=== PATIENT | female | born 1950 | race Caucasian/White ===

== ENCOUNTER → 2017-09-22 08:25 | Outpatient (CLI) | payer MEDICARE, SELFPAY ==
--- NOTE | 2017-09-22 08:27 | MM_ITS ---
MM Dig screening mamm BI w/CAD CAD Screening COMPARISON: Digital mammograms 08/15/2016 and follow-up additional views of each breast 09/06/2016 INDICATION: There is a history of breast cancer in patient's sister diagnosed after menopause.. TECHNIQUE: Standard CC and MLO images were obtained. R2 CAD reviewed. FINDINGS: Scattered fibroglandular densities are seen throughout both breasts. There are stable benign-appearing nodular densities in each breast. There are mole markers on each breast and there is faint arterial calcification in each breast. There is no suspicious lesion and there are no suspicious microcalcifications. IMPRESSION: Fibrofatty parenchyma no suspicious lesion seen BI-RADS Category: 2 Benign Finding(s) RECOMMENDED FOLLOW-UP: 1YR - 1 YEAR FOLLOW-UP (A letter has been sent to the patient regarding results of the study.)
== END ==
PROVIDERS: PCP Family Medicine Geriatric Medicine; Visit Provider Obstetrics & Gynecology
DX: Z12.31 Encounter for screening mammogram for malignant neoplasm of breast (principal)
CPT/HCPCS: 77067

== ENCOUNTER → 2018-09-18 08:49 | Outpatient (CLI) | payer MEDICARE, SELFPAY ==
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
== END ==
PROVIDERS: PCP Emergency Medicine; Visit Provider Emergency Medicine
DX: Z13.820 Encounter for screening for osteoporosis (principal); Z78.0 Asymptomatic menopausal state
CPT/HCPCS: 77080

== ENCOUNTER → 2018-09-25 08:20 | Outpatient (CLI) | payer MEDICARE, SELFPAY ==
--- NOTE | 2018-09-25 08:22 | MM_ITS ---
MM Dig screening mamm BI w/CAD CAD Screening COMPARISON: Digital mammograms with CAD 08/15/2016 and 09/22/2017 INDICATION: There is a history of breast cancer patient's sister diagnosed after menopause. There has been previous biopsy left breast for benign disease. TECHNIQUE: Standard CC and MLO images were obtained. R2 CAD reviewed. FINDINGS: Scattered fibroglandular densities are seen throughout both breasts. There are stable benign-appearing nodular densities in each breast. There are few benign-appearing microcalcifications in each breast. There are mole markers on each breast. There is no suspicious lesion and there are no suspicious microcalcifications. IMPRESSION: Fibrofatty parenchyma with no suspicious lesion seen BI-RADS Category: 2 Benign Finding(s) RECOMMENDED FOLLOW-UP: 1YR - 1 YEAR FOLLOW-UP (A letter has been sent to the patient regarding results of the study.)
== END ==
PROVIDERS: PCP Emergency Medicine; Visit Provider Obstetrics & Gynecology
DX: Z12.31 Encounter for screening mammogram for malignant neoplasm of breast (principal)
CPT/HCPCS: 77067

== ENCOUNTER → 2019-11-30 09:21 | Outpatient (CLI) | payer MEDICARE, SELFPAY ==
--- NOTE | 2019-11-30 09:21 | MM_ITS ---
PROCEDURE: MM DIG SCREENING MAMM BI W/CAD Digital Breast Tomosynthesis Included CLINICAL INDICATION: Routine Screening Mammogram There is a history of breast cancer patient's sister diagnosed after menopause. There has been a previous biopsy left breast for benign disease. COMPARISON: [facility] DIG MAMM- [facility] ADD VIEWS W/CAD from 09/06/2016 [facility] MM Dig screening mamm BI w/CAD from 09/22/2017 [facility] MM Dig screening mamm BI w/CAD from 09/25/2018 TECHNIQUE: Standard CC and MLO images and 3D Tomosynthesis was obtained. R2 CAD reviewed. FINDINGS: Scattered fibroglandular densities are seen throughout both breasts. There are stable small nodular benign-appearing densities in each breast. There are 2 mole markers right breast and a single mole marker left breast. There are couple of benign-appearing calcifications in each breast and there is a biopsy clip left breast. There is a probable intramammary node near the axillary tail right breast. There is faint arterial calcification in each breast. There is no new or suspicious lesion in either breast and no suspicious microcalcifications. IMPRESSION: Fibrofatty parenchyma with no suspicious lesions seen BI-RAD Category: 2 Benign Finding(s) FOLLOW-UP: 1YR 1 Year Follow-up (A letter has been sent to the patient regarding results of the study.) Dictated by: Dr. Eliud Leon MD 12/03/2019 07:[address] Eliud Leon MD in [place] 12/03/2019 07:54
== END ==
PROVIDERS: PCP Emergency Medicine; Visit Provider Obstetrics & Gynecology
DX: Z12.31 Encounter for screening mammogram for malignant neoplasm of breast (principal)
CPT/HCPCS: 77063; 77067

== ENCOUNTER 2020-07-03 10:00 | Outpatient (RCR) | payer MEDICARE, SELFPAY ==
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
--- NOTE | 2020-06-06 09:41 | HMH.RHREAS ---
Rehab Reassessment Rehab OP Re-assessment Start: 06/06/20 09:31 Freq: Status: Active Protocol: Document 06/06/20 09:31 FRANCIS (Rec: 06/06/20 09:40 FRANCIS [id number]) Electronically Signed By Cinthya Victor OT 06/06/20 09:31 Rehab Re-assessment Subjective Subjective My finger is getting better. I can cook pickled meat my skillet a little better. Objective Objective Notes Patient has participated well in skilled OP OT services with manual stretching, thera exer and modalities to improve AROM/strengthening and decrease pain levels for L index finger of MP, PIP and DIP. Assessment Progress Assessment Progressing as Expected Patient goals met 1. AROM L index MCP: 90 degrees 2. AROM L index PIP: 70 degrees 3. Pain level 1/10 at worst Goals Not Met 1. AROM of DIP: 50. 2. L asp net programmer strength 30# Revised Goals 1. AROM L index PIP: 75 degrees 2. AROM L index DIP: 75 degrees 3. AROM L asp net programmer strength 40# 4. 0/10 pain at worst Plan Plan Continue POC Frequency of Therapy 2 Duration of therapy 4 Time and Billing Re-Eval Time 15 Re-Eval Billing Units 1 PHYSICIAN CERTIFICATION: I certify the specified therapy services for Chasity Hyde are required, authorized, and reviewed every 30 days.
--- NOTE | 2020-07-03 10:35 | HMH.RHREAS ---
Rehab Reassessment Rehab OP Re-assessment Start: 06/06/20 09:31 Freq: Status: Active Protocol: Document 07/03/20 10:10 FRANCIS (Rec: 07/03/20 10:17 FRANCIS [id number]) Electronically Signed By Cinthya Victor OT 07/03/20 10:10 Rehab Re-assessment Subjective Subjective I just got an email about my follow up appointment but not a date. My finger is feeling better. Objective Objective Notes Patient has participated well in skilled OP OT services with manual stretching, thera exer and modalities to improve AROM/strengthening and decrease pain levels for L index finger of MP, PIP and DIP. Assessment Progress Assessment Progressing as Expected Assessment Notes Patient has made progress with improving L index AROM of PIP to 80 degrees and DIP: 60 degrees from re-assessment. Patient verbalize 0/10 pain with L index finger during AROM. Awaiting for ortho appointment for possible surgery to remove scar tissue. Patient goals met 1. 0/10 pain to L index during still and AROM. 2. AROM of L index PIP: 80 degrees Goals Not Met L AROM of DIP: 60 degrees and L chemical plant worker: strength: 30# Revised Goals 1. 0/10 pain to L index finger . Continue for consistency. 2. AROM of L index PIP: 85 degrees 3. AROM of L index DIP: 70 degrees 4. L chemical plant worker strength 40# Plan Plan Continue POC Frequency of Therapy 1x/wk Duration of therapy 4 weeks PHYSICIAN CERTIFICATION: I certify the specified therapy services for Chasity Hyde are required, authorized, and reviewed every 30 days.
== END 2020-07-03 10:05 | disposition home or self-care (01) ==
LOC: OT 10:00
PROVIDERS: PCP Emergency Medicine; Visit Provider Family Medicine
DX: M25.642 Stiffness of left hand, not elsewhere classified (principal)
CPT/HCPCS: 97018; 97035; 97110; 97140; 97164; 97165

== ENCOUNTER → 2020-12-28 09:21 | Outpatient (CLI) | payer MEDICARE, SELFPAY ==
--- NOTE | 2020-12-28 09:24 | MM_ITS ---
PROCEDURE INFORMATION: Exam: MG Screening 3D Mammography Exam date and time: 12/28/2020 9:24 AM Age: 70 years old Clinical indication: Encounter for screening mammogram for malignant neoplasm of breast TECHNIQUE: Imaging protocol: Screening tomosynthesis and 2D mammography including computer-aided detection (CAD) when performed. COMPARISON: 1. MG MM DIG SCREENING MAMM BI W/CAD 11/30/2019 9:30 AM 2. MG [facility] MM Dig screening mamm BI w/CAD 09/25/2018 8:39 AM FINDINGS: MAMMOGRAPHY: Breast composition: The breast tissue is composed of scattered areas of fibroglandular density. Mass: None. Architectural distortion: None. Calcifications: No suspicious calcifications. Asymmetric density: None. Skin thickening: None. Axillary adenopathy: None. IMPRESSION: No mammographic evidence of malignancy. Annual screening is recommended unless otherwise clinically indicated. ASSESSMENT: BI-RADS Category 1: Negative
== END ==
PROVIDERS: PCP Family Medicine; Visit Provider Family Medicine
DX: Z12.31 Encounter for screening mammogram for malignant neoplasm of breast (principal)
CPT/HCPCS: 77063; 77067

== ENCOUNTER → 2022-03-08 10:02 | Outpatient (CLI) | payer MEDICARE, SELFPAY ==
--- NOTE | 2022-03-08 10:07 | MM_ITS ---
PROCEDURE INFORMATION: Exam: MG Bilateral Screening 3D Mammography Exam date and time: 03/08/2022 10:00 AM Age: 71 years old Clinical indication: Screening mammogram TECHNIQUE: Imaging protocol: Bilateral Screening tomosynthesis and 2D mammography including computer-aided detection (CAD) when performed. COMPARISON: 1. MG MM DIG SCREENING MAMM BI W/CAD 12/28/2020 9:21 AM 2. MG MM DIG SCREENING MAMM BI W/CAD 11/30/2019 9:30 AM 3. MG [facility] MM Dig screening mamm BI w/CAD 09/25/2018 8:39 AM 4. MG [facility] MM Dig screening mamm BI w/CAD 09/22/2017 8:39 AM FINDINGS: MAMMOGRAPHY: Breast composition: There are scattered areas of fibroglandular density. Mass: Stable benign-appearing subcentimeter nodules are present in the left breast. No new or morphologically suspicious nodule has developed to suggest malignancy. Architectural distortion: No new or suspicious architectural distortion. Calcifications: Stable benign-appearing calcifications are present. No new or suspicious cluster of microcalcifications have developed. Asymmetric density: No new or suspicious asymmetric density is present Skin thickening: None. Axillary adenopathy: None. IMPRESSION: No mammographic evidence of malignancy. Recommend annual screening mammography unless otherwise clinically indicated. ASSESSMENT: BI-RADS category 2: Benign
== END ==
PROVIDERS: PCP Family Medicine; Visit Provider Family Medicine
DX: Z12.31 Encounter for screening mammogram for malignant neoplasm of breast (principal)
CPT/HCPCS: 77063; 77067

== ENCOUNTER → 2023-03-10 10:20 | Outpatient (CLI) | payer MEDICARE, SELFPAY ==
--- NOTE | 2023-03-10 10:23 | MM_ITS ---
PROCEDURE INFORMATION: Exam: MG Bilateral Screening 3D Mammography Exam date and time: 03/10/2023 10:15 AM Age: 72 years old Clinical indication: Screening examination . Family history of breast carcinoma. TECHNIQUE: Imaging protocol: Bilateral Screening tomosynthesis and 2D mammography including computer-aided detection (CAD) when performed. COMPARISON: 1. MG MM DIG SCREENING MAMM BI W/CAD 03/08/2022 10:00 AM 2. MG MM DIG SCREENING MAMM BI W/CAD 12/28/2020 9:21 AM 3. MG MM DIG SCREENING MAMM BI W/CAD 11/30/2019 9:30 AM FINDINGS: MAMMOGRAPHY: Breast composition: There are scattered areas of fibroglandular density. Mass: No suspicious masses. Architectural distortion: No suspicious distortion. Calcifications: No suspicious calcifications. Asymmetric density: None. Skin thickening: None. Axillary adenopathy: None. IMPRESSION: 1. No mammographic evidence of malignancy. Annual screening is recommended unless otherwise clinically indicated. 2. Given the reported risk factors for this patient, a breast cancer risk assessment may prove useful for further evaluation. ASSESSMENT: BI-RADS Category 1: Negative
== END ==
PROVIDERS: PCP Family Medicine; Visit Provider Family Medicine
DX: Z12.31 Encounter for screening mammogram for malignant neoplasm of breast (principal)
CPT/HCPCS: 77063; 77067

== ENCOUNTER → 2023-07-04 09:37 | Outpatient (CLI) | payer MEDICARE, SELFPAY | PROVIDERS: PCP Family Medicine; Visit Provider Family Medicine | DX: G47.33 Obstructive sleep apnea (adult) (pediatric) (principal); G47.36 Sleep related hypoventilation in conditions classified elsewhere; R06.83 Snoring | CPT/HCPCS: G0399 ==

== ENCOUNTER 2024-03-17 10:22 | Outpatient (CLI) | payer MEDICARE, SELFPAY ==
--- NOTE | 2024-03-17 | MM_ITS ---
PROCEDURE INFORMATION: Exam: MG Bilateral Screening 3D Mammography Exam date and time: 03/17/2024 10:19 AM Age: 73 years old Clinical indication: Screening examination TECHNIQUE: Imaging protocol: Bilateral Screening tomosynthesis and 2D mammography including computer-aided detection (CAD) when performed. COMPARISON: 1. MG MM DIG SCREENING MAMM BI W/CAD 03/10/2023 10:15 AM 2. MG MM DIG SCREENING MAMM BI W/CAD 03/08/2022 10:00 AM FINDINGS: MAMMOGRAPHY: Breast composition: There are scattered areas of fibroglandular density. Mass: No suspicious masses. Architectural distortion: None. Calcifications: No suspicious calcifications. Asymmetric density: 1.2 cm focal asymmetry upper inner left breast posterior depth. Skin thickening: None. Axillary adenopathy: None. IMPRESSION: Questioned left breast focal asymmetry.The patient will be recalled for spot compression views of the left breast in the CC and MLO projections, a full 90 degree lateral view, and possible left breast ultrasound for further evaluation. ASSESSMENT: BI-RADS Category 0: Incomplete- Need Additional Imaging Evaluation.
== END 2024-03-17 23:59 | disposition home or self-care (01) ==
LOC: RAD 10:22
PROVIDERS: PCP Family Medicine; Visit Provider Family Medicine
DX: Z12.31 Encounter for screening mammogram for malignant neoplasm of breast (principal)
CPT/HCPCS: 77063; 77067

== ENCOUNTER 2024-04-16 10:22 | Outpatient (CLI) | payer MEDICARE, SELFPAY ==
--- NOTE | 2024-04-16 10:28 | MM_ITS ---
PROCEDURE INFORMATION: Exam: MG Left Diagnostic Breast Tomosynthesis Exam date and time: 04/16/2024 10:18 AM Age: 73 years old Clinical indication: Callback from screening exam dated 03/17/2024 for a left breast focal asymmetry TECHNIQUE: Imaging protocol: Left Diagnostic tomosynthesis and 2D mammography including computer-aided detection (CAD) when performed. Unilateral or bilateral exam. COMPARISON: 1. MG MM DIG SCREENING MAMM BI W/CAD 03/17/2024 10:19 AM 2. MG MM DIG SCREENING MAMM BI W/CAD 03/10/2023 10:15 AM FINDINGS: MAMMOGRAPHY: Breast composition: There are scattered areas of fibroglandular density (based on the most recent screening mammogram report.) Breast mammogram findings: Additional views of the left breast demonstrate a indistinct questionable glandular asymmetry in the far posterior tissues of the left breast, approximate 11-12 o'clock axis, best appreciated on the craniocaudal spot compression view measuring 1.2 cm. There are no suspicious calcifications or a discrete mass. IMPRESSION: Focal asymmetry in the left breast approximate 11-12 o'clock axis, in the far posterior tissues. Additional ultrasound evaluation of this region is recommended. ASSESSMENT: BI-RADS Category 0: Incomplete- Need Additional Imaging Evaluation.
== END 2024-04-16 23:59 | disposition home or self-care (01) ==
LOC: RAD 10:22
PROVIDERS: PCP Family Medicine; Visit Provider Family Medicine
DX: R92.8 Other abnormal and inconclusive findings on diagnostic imaging of breast (principal)
CPT/HCPCS: 77061; 77065; G0279

== ENCOUNTER 2024-04-28 10:20 | Outpatient (CLI) | payer MEDICARE, SELFPAY ==
--- NOTE | 2024-04-28 10:23 | US_ITS ---
PROCEDURE INFORMATION: Exam: US Left Breast, Complete Exam date and time: 04/28/2024 10:38 AM Age: 73 years old Clinical indication: Callback from screening for left breast asymmetry. TECHNIQUE: Imaging protocol: Complete ultrasound of all four quadrants of the left breast and the retroareolar regions, including ultrasound of the axilla when performed. COMPARISON: MG MM DIG MAMM DX UNILAT LT CAD 04/16/2024 10:18 AM FINDINGS: ULTRASOUND: Breast ultrasound findings: Left breast ultrasound: Benign simple cyst at 10 o'clock 3 cm from nipple measuring 0.5 cm corresponding to mammographic finding in question. Additional benign simple cyst measuring 0.9 cm at 10 o'clock, 9 cm from the nipple. Cluster of benign microcysts at 3 o'clock 3 cm from nipple measuring 0.7 cm. No solid or suspicious masses. IMPRESSION: Benign simple cysts in the left breast.There are no findings suspicious for malignancy. Annual mammographic screening is recommended unless otherwise clinically indicated. ASSESSMENT: BI-RADS Category 2: Benign.
== END 2024-04-28 23:59 | disposition home or self-care (01) ==
LOC: RAD 10:20
PROVIDERS: PCP Family Medicine; Visit Provider Family Medicine
DX: R92.8 Other abnormal and inconclusive findings on diagnostic imaging of breast (principal)
CPT/HCPCS: 76641

== ENCOUNTER 2025-01-19 09:21 | Outpatient (CLI) | payer MEDICARE, SELFPAY ==
--- OUTSIDE RECORDS SUMMARY | 2024-11-03 05:30 | XMS_ITS ---
Author Organization [facility] Address [address] [facility] [address] [place], [place] [id number] Care Team Providers Care Associate Quality Engineer Name Role Phone Reymundo Donato Primary Care Provider [phone] Allergies No Known Allergies Results Component Value [...] Interpretation:Normal Performing Lab: Notes/Report: Test performed by [place] , [address], [place] [address] Jose Walls MD, Warp Dyeing Vat Tender CLIA: [id number] Sodium 140 135-145 mmol/L Potassium 4.5 3.5-5.3 [...] Problem Status W/U Status Risk Notes Problem BMI 31.0-31.9,ad ult (Z68.31) Active confirmed Vital Signs Blood pressure systolic 138 mm Hg 11/04/19 25 Blood pressure diastolic 78 mm Hg 025 Heart Rate 85 /min 11/03/2024 Height 64 in 11/03/2024 Weight 184.4 lbs 11/03/2024 BMI 31.65 kg/m2 11/03/2024 Encounters Encounter Location Date Provider Diagnosis [facility] [address] [facility] [address] [place] [address], [place] [phone] 11/03/2024 Reymundo Donato Type 2 diabetes savita itus without complication, without long-term current use of insulin E11.9 ; Essential hypertension I10 ; Depression with anxiety F41.8 ; Gastroesophageal reflux disease, unspecified whether esophagitis present K21.9 ; shelter use of drug Z79.899 and BMI 31.0-31.9,adult [...] whether esophagitis present (ICD-10 - K21.9) 11/03/2024 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 :1950 A ge:74 Y S ex:Female Date:11/03/2024 Address:[facility] [id number] Subjective: * Chief Complaints: * 1 . [...] use of drug - Z79.899 ?6. B NM 31.0-31.9,adult - Z68.31 Plan: * Treatment: Value [...] Justine [place] 11/03/2024 10:43:3 9 AM > Eloise Schmidt 11/04/2024 08:43:42 AM [...] AM > please notify of satisfactory labs. KingJustine 11/04/2024 9:32:41 AM > LM for pt to return call AlfonsoYolaJustine 11/04/2024 10:47:08 AM > Pt informed 3.?Depression with anxiety? Refill buPROPion HCl ER (XL) Tablet Extended Release 24 Hour, 300 MG, 1 tablet in the morning, Orally, Once a day, 90 days, 90, Refills 1.??4.?Gastroesophageal reflux disease, unspecified whether esophagitis present? Refill Omeprazole Capsule Delayed Release, 20 MG, TAKE 1 CAPSULE BY MOUTH EVERY DAY, 90 days, 90 Capsule, Refills 1.??5.?shelter use of drug?LAB: CBC Venipuncture (in house) [...] p latlet 295 100 - 400 * King Justine 11/03/2024 10:42:1 1 AM > Eloise Schmidt [...] G 2211 Complex e/[place], [address] GLUCOSE TEST, 99929 GLYCATED HEMOGLOBIN TEST, Modifiers: QW , 12120 CBC WITH AUTO DIFF, 3044F HG A1C LEVEL LT 7.0%, G8752 MOST RECENT SYSTOLIC BP < 140MM HG, G8754 MOST RECENT DIASTOLIC BP < 90MM HG * Follow Up: 6 Months * Images: Billing Information: * Visit Code: 70303 Office Visit, Est Pt., Level 4. * Procedure Codes: G2211 Complex e/[place]. [address] GLUCOSE TEST. 85576 GLYCATED HEMOGLOBIN TEST. Modifiers: QW 36034 CBC WITH AUTO DIFF. 3044F HG A1C LEVEL LT 7.0%. G8752 MOST RECENT SYSTOLIC BP < 140MM HG. G8754 MOST RECENT DIASTOLIC BP < 90MM HG. * Electronic signature of Erika Donato MD on 01/19/2025 at 09:28 AM EDT Sign off status: Pending * Provider: Obed Donato M.D. Date: 0 11/03/2024 Generated for Mary Jane adames/Char/Humbertoitting on: 0 01/19/2025 09:28 AM EDT History and Physical Notes * HPI (History [...]
--- OUTSIDE RECORDS SUMMARY | 2024-11-10 05:30 | XMS_ITS ---
Author Organization [facility] Address [address] [facility] [address] [facility] [address] [place] [id number] Care Team Providers Care Technical Producer Name Role Phone Reymundo Donato Primary Care [...] DAY; Duration: 90 days Active Vital Signs Blood pressure systolic 134 mm Hg 11/11/19 25 Blood pressure diastolic 76 mm Hg 025 Heart Rate 92 /min 11/10/2024 Height 64 in 11/10/2024 Weight 184 lbs 11/10/2024 BMI 31.58 kg/m2 11/10/2024 Encounters Encounter Location Date Provider Diagnosis [facility] [address] [place] [id number] 11/10/2024 Reymundo Donato Plan Of Treatment Next Appt Details Provider Name:Ryemundosusie Hair ry, 05/06/2025 09:30:00 AM, [address], [address], [place], [phone], Progress Notes * ERROL HYDEMICHAELOB:1950 ([age] yo F)Acc No.[id number]:11/10/2024 Progress notes Patient: YOKO GARCIA Provider: Obed Donato M.D. :1950 A ge:74 Y S ex:Female Date:11/10/2024 Address:[address] [place], [place] [phone] Subjective: * Chief Complaints: * 1 . [...] 11/10/2024 Generated for Mary Jane adames/Char/Humbertoitting on: 0 01/19/2025 09:28 AM EDT History and Physical Notes * HPI (History of Present Illness) Category Sub-Category Detail Notes Category Not es HPI Here for follow up on: diabetes. Pt is here for demontsration on how to use Ozempic once a week
--- OUTSIDE RECORDS SUMMARY | 2024-12-23 05:10 | XMS_ITS ---
[facility] Address [address] [place] [address] [address] [place], [place] [id number] Care Team Providers Care Auto [employer] Counter Person Name Role Phone Reymundo Donato Primary Care Provider REASON FOR VISIT RIAZ Goins Encounters Encounter Location Date Provider Diagnosis [facility] [address] [facility] [address] [facility] [address] [place], [place] [id number] 12/23/2024 Reymundo Donato Screening for osteoporosis Z13.820 Assessments Encounter Date Diagnosis (ICD Code) Assessment Notes Treatment Notes Treatment Clinical Notes Section Notes 12/23/2024 Screening for osteoporosis (ICD-10 - Z13.820) Plan Of Treatment Pending Test Test Name Order Date Bone density 12/23/2024 Next Appt Details Provider Name:Reymundo Hair ry, 05/06/2025 09:30:00 AM, [address] [facility] [address] [facility], [address], [place], [place], [id number], Progress Notes * EMILY HYDEOB:1950 ([age] yo F)Acc No.[id number]:12/23/2024 Patient: YOKO GARCIA :1950 A ge:74 Y S ex:Female Address:[address] [place] [id number] Subjective: * Chief Complaints: * C RIAZ stein * Medical History: * Surgical History: * Hospitalization/Major Diagno stic Procedure: * Medications: Objective: * Vitals: * Physical Examination: Assessment: * Assessment: 1. S creening for osteoporosis - Z13.820 (Primary) Plan: * Treatment: * Procedure Codes: * true * Date: Generated for Mary Jane adames/Char/Perez on: 0 01/19/2025 09:28 AM EDT
--- NOTE | 2025-01-19 09:24 | XR_ITS ---
FINAL REPORT CLINICAL HISTORY: SCREENING COMPARISON: None FINDINGS: Using L1-4, the bone mineral density of the spine is 1.286 g/cm2, corresponding to T-score of 2.2, within normal limits. Using the left hip, the bone mineral density of the femoral neck is 0.821 g/cm2, corresponding to a T-score of -0.3, within normal limits. Using the right hip, the bone mineral density of the femoral neck is 0.865 g/cm2, corresponding to a T-score of 0.1, within normal limits. FRAX not reported because all T-scores at or above-1.0. NOTE: T-score: Standard deviation compared with peak bone mass of young adult mean. *Following the recommendations of the International Society of Bone densitometry, classification of hip BMD is based on the lower of two T-scores; total hip or femoral neck. IMPRESSION: Normal bone mineral density of the lumbar spine and hips. Reviewed, Interpreted and Dictated by Adina Vizcarra MD Transcribed by Luba Howell Authenticated and [facility]
--- OUTSIDE RECORDS SUMMARY | 2025-01-19 09:28 | XMS_ITS | Patient Health Record ---
Author Organization [facility] Address [address] [facility] [address] [place] [id number] Care Team Providers Care Barrel Scraper Name Role Phone RavenSommer ovalleian Primary Care Provider [phone] Allergies No Known Allergies Results Component Value [...] Interpretation: Performing Lab: Notes/Report: Test performed by [facility] , [address], [place] [address] Jose Walls MD, Stitch Bonder Machine Operator Helper CLIA: [id number] Sodium 140 135-145 mmol/L Potassium 4.4 3.5-5.3 [...] Interpretation: Performing Lab: Notes/Report: Test performed by [facility] [address] , [address] , [place] [address] Jose Walls MD, Stitch Bonder Machine Operator Helper CLIA: [id number] Cholesterol 145 <200 mg/dL Triglycerides 129 <150 [...] Interpretation: Performing Lab: Notes/Report: Test performed by [facility] [address] [place] [address] , [address], [place] [address] Jose Walls MD, Stitch Bonder Machine Operator Helper CLIA: [id number] TSH reflex to FT4 1.74 0.43-5.25 mU/L P-Microalbumin/Creatinine, R andom Urine Sample Reviewed date:04/08/2024 09:08:06 AM Interpretation: Performing Lab: Notes/Report: Test performed by [facility] [address] [place] [address] , [address], [place] [address] Jose Walls MD, Stitch Bonder Machine Operator Helper CLIA: [id number] Albumin/Creatinine Ratio, Urine See Comment 0-30 ug/mg Unable to calculate Urine Albumin/Creatinine Ratio when urine creatinine or urine albumin fall outside established reportable range. Microalbumin, Urine, Random <0.3 Creatinine, Urine 24.7 Mammogram, spot compression, left breast Reviewed date:04/22/2024 08:45:53 AM Interpretation:needs additional imaging- US left breast Performing Lab: Notes/Report: needs additional imaging- US left breast Mammogram Reviewed date:03/22/2024 08:53:37 AM Interpretation:needs additional imaging Performing Lab: Notes/Report: needs additional imaging result needs additional imaging Ultrasound : Breast, left Reviewed date:05/03/2024 04:08:00 PM Interpretation:Benign Simple Cysts; Annual Screening Recommended Performing Lab: Notes/Report: Benign Simple Cysts; Annual Screening Recommended P-Basic Metabolic Panel (BMP ) Reviewed date:11/04/2024 10:48:04 AM Interpretation:Normal Performing Lab: Notes/Report: Test performed by [facility] [address] [place] [address] , [address], [place] [address] Jose Walls MD, Stitch Bonder Machine Operator Helper CLIA: [id number] Sodium 140 135-145 mmol/L Potassium 4.5 3.5-5.3 mmol/L Chloride 102 97-108 mmol/L CO2 25 22-32 mmol/L Glucose 105 65-99 mg/dL BUN 16 8-23 mg/dL Creatinine 0.98 0.50-1.00 mg/dL Calcium 10.0 8.6-10.4 mg/dL eGFR by Creatinine 61 >59 mL/min/1.73m2 Glycohemoglobin A1c (in hous e) Reviewed date:11/04/2024 10:48:04 AM Interpretation:6.6 Performing Lab: Notes/Report: 6.6 glycohemoglobin 6.6% 5 - 6.5 % CBC Venipuncture (in house) Reviewed date:11/04/2024 10:48:04 [...] - 38 platlet 295 100 - 400 Glucose (In-House) Reviewed date:11/04/2024 10:48:04 AM Interpretation:133 Performing Lab: Notes/Report: 133 blood glucose 133 74 - 106 mg/dL Reason For Referral No Information Medications Medication SIG (Take, Route, Frequency, Duration) Notes Start Date End Date Status CPAP Supplies - as directed as directed 11/03/2024 Active amLODIPine Besylate 5 MG TAKE 1 TABLET BY MOUTH DAILY; Duration: 90 days Active Omeprazole 20 MG TAKE 1 CAPSULE BY MOUTH EVERY DAY; Duration: 90 days Active Lisinopril 40 MG 1 tablet Orally [...] times a day; Duration: 30 day(s) Active Ozempic (0.25 or 0.5 MG/DOSE) 2 MG/3ML 0.5 mg Subcutaneous once weekly; Duration: 30 days 11/03/2024 Active Immunizations Vaccine Route Administration Date Status Comme nts COVID 19 Moderna Unknown 07/07/2020 Administered COVID 19 Moderna Unknown 08/04/2020 Administered COVID 19 Moderna Unknown 05/03/2021 Administered Fluzone High Dose (65yr and older) Unknown 09/14/2018 Administered Fluzone High Dose (65yr and older) IM Intramuscular 04/09/2019 Administered Fluzone High Dose (65yr and older) IM Intramuscular 05/02/2020 Administered Fluzone High Dose (65yr and older) IM Intramuscular 04/17/2021 Administered Fluzone High Dose (65yr and older) IM Intramuscular 04/18/2022 Administered Fluzone High Dose (65yr and older) IM Intramuscular 04/07/2024 Administered PNEUMOVAX 23 VACCINE IM Intramuscular 05/02/2020 Administe red ppd ID Intradermal 04/10/2019 Administered Prevnar (PCV13) Unknown 09/14/2018 Administered Prevnar (PCV20) IM Intramuscular 04/18/2022 Administered Tetanus Tdap-Adacel (over 7yrs) IM Intramuscular 09/14/2018 Administered Problems Problem Type SNOMED Code ICD Code Onset Dates Problem Status W/U Status Risk Notes Problem Essential hypertension (18155404) Essential hypertension (I10) Active confirmed Problem Abnormal mammogram (773848988) Abnormal mammogram (R92.8) Active confirmed Problem Anxiety (42775847) Anxiety (F41.9) Active confi rmed Problem Mixed anxiety and depressive disorder (368245920) Depression with anxiety (F41.8) Active confirmed Problem Body mass index 30.00 to 34.99 (281790467280756) BMI 31.0-31.9,adult (Z68.31) Active confirmed Problem Type II diabetes mellitus without complication (198017156) Type 2 diabetes mellitus without complication, without long-term current use of insulin (E11.9) Active confirmed Problem Impaired fasting glycaemia (549951242) IFG (impaired fasting glucose) (R73.01) Active confirmed Problem Obesity (110303508) Non morbid o besity (E66.9) Active confirmed Problem Hyperlipidemia (60490726) Other hyperlipidemia (E78.49) Active confirmed Problem Obstructive sleep apnea syndrome (84407992) Mild obstructive sleep apnea (G47.33) Active confirmed Problem Gastroesophageal reflux disease (655352876) Gastroesophageal reflux disease, unspecified whether esophagitis present (K21.9) Active confirmed Vital Signs Heart Rate 92 /min 11/10/2024 Blood pressure diastolic 76 mm Hg 11/10/2024 Height 64 in 11/10/2024 Blood pressure systolic 134 mm Hg 11/10/2024 Weight 184 lbs 11/10/2024 BMI 31.58 kg/m2 11/10/2024 Encounters Encounter Location Date Provider Diagnosis [facility] [facility] [address] [place] [id number] 04/07/2024 Reymundo Raven Type 2 diabetes savita itus without complication, without long-term current use of insulin E11.9 ; Essential hypertension I10 ; Other hyperlipidemia E78.49 ; Depressive disorder F32.A and Encounter for immunization Z23 [facility] [address] [place] [facility] [address] [place] [id number] 05/05/2024 Reymundo Raven Essential hypertensi on I10 and Depression with anxiety F41.8 [facility] [address] [facility] [address] [place] [id number] 06/09/2024 Reymundo Raven Essential hypertensi on I10 and Depression with anxiety F41.8 [facility] [address] [facility] [address] [place] [id number] 11/03/2024 Reymundo Raven Type 2 diabetes savita itus without complication, without long-term current use of insulin E11.9 ; Essential hypertension I10 ; Depression with anxiety F41.8 ; Gastroesophageal reflux disease, unspecified whether esophagitis present K21.9 ; jail use of drug Z79.899 and BMI 31.0-31.9,adult Z68.31 [facility] [address] [place] [facility] [address] [place] [id number] 11/10/2024 Reymundo Raven [facility] [address] [facility] [address] [place], [place] [id number] 03/22/2024 Reymundo Raven Abnormal mammogram R 92.8 [facility] [address] [place] [facility] [address] [place] [id number] 04/22/2024 Reymundo Raven Abnormal mammogram R 92.8 [facility] [address] [place], [place] [id number] 11/03/2024 Reymundo Raven [facility] [address] [place], [place] [id number] 12/08/2024 Reymundo Raven Type 2 diabetes savita itus without complication, without long-term current use of insulin E11.9 [facility] [address] [place], [place] [id number] 12/13/2024 Reymundo Raven Type 2 diabetes savita itus without complication, without long-term current use of insulin E11.9 [facility] [address] [place], [place] [id number] 12/23/2024 Reymundo Raven Screening for osteop orosis Z13.820 [facility] [address] [place], [place] [id number] 01/12/2025 Reymundo Raven Type 2 diabetes savita itus without complication, without long-term current use of insulin E11.9 Assessments Encounter Date Diagnosis (ICD Code) Assessment Notes Treatment Notes Treatment Clinical Notes Section Notes 03/22/2024 Abnormal mammogram (ICD-10 - R92.8) 04/07/2024 Essential hypertension (ICD-10 - I10) Not at goal today 04/07/2024 Type 2 diabetes mellitus without complication, without long-term current use of insulin (ICD-10 - E11.9) 04/22/2024 Abnormal mammogram (ICD-10 - R92.8) 05/05/2024 Essential hypertension (ICD-10 - I10) Not at goal today 05/05/2024 Depression with anxiety (ICD-10 - F41.8) 06/09/2024 Essential hypertension (ICD-10 - I10) 06/09/2024 Depression with anxiety (ICD-10 - F41.8) 11/03/2024 Essential hypertension (ICD-10 - I10) 12/08/2024 Type 2 diabetes mellitus without complication, without long-term current use of insulin (ICD-10 - E11.9) 12/13/2024 Type 2 diabetes mellitus without complication, without long-term current use of insulin (ICD-10 - E11.9) 12/23/2024 Screening for osteoporosis (ICD-10 - Z13.820) 01/12/2025 Type 2 diabetes mellitus without complication, without long-term current use of insulin (ICD-10 - E11.9) 11/03/2024 Type 2 diabetes mellitus without complication, without long-term current use of insulin (ICD-10 - E11.9) 11/03/2024 Depression with anxiety (ICD-10 - F41.8) 04/07/2024 Other hyperlipidemia (ICD-10 - E78.49) 04/07/2024 Depressive disorder (ICD-10 - F32.A) 11/03/2024 Gastroesophageal reflux disease, unspecified whether esophagitis present (ICD-10 - K21.9) 11/03/2024 jail use of drug (ICD-10 - Z79.899) 04/07/2024 Encounter for immunization (ICD-10 - Z23) 11/03/2024 BMI 31.0-31.9,adult (ICD-10 - Z68.31) Plan Of Treatment Pending Test Test Name Order Date Bone density 12/23/2024 Cologuard 04/24/2023 Next Appt Details Provider Name:Reymundo Hair ry, 05/06/2025 09:30:00 AM, [address] [facility], [address], [place], [place], [id number], Insurance Providers Payer Name Payer Address Payer Phone Subscriber Number Group Number Insured Name Patient Relationship to Insured Coverage Start Date Coverage End Date [employer] [address] [address] [place], [place] [id number] YOKO HYDE Self - patient is the insured Medical (General) History Medical History History ICD Code Type 2 Diabetes Hypertension Hyperlipidemia Depression Cologuard, Negative 01/2020 sleep apnea Surgical History Surgery Date(Month/Year) Total Hysterectomy 2006 Colonoscopy, Dr. Barbosa 2008 Hospitalization History Reason Date(Month/Year)
== END 2025-01-19 23:59 | disposition home or self-care (01) ==
LOC: RAD 09:21
PROVIDERS: PCP Family Medicine; Visit Provider Family Medicine
DX: Z13.820 Encounter for screening for osteoporosis (principal); Z78.0 Asymptomatic menopausal state
CPT/HCPCS: 77080

== ENCOUNTER 2025-06-03 13:15 | Outpatient (CLI) | payer MEDICARE, SELFPAY ==
--- OUTSIDE RECORDS SUMMARY | 2024-04-07 05:15 | XMS_ITS ---
Author Organization [facility] Address [address] [facility] [address] [place], [place] [id number] Care Team Providers Care Sectionizer Name Role Phone Reymundo Donato Primary Care Provider [phone] Allergies No Known Allergies Results Component Value Reference Range Notes Glucose (In-House) Reviewed date:04/08/2024 09:08:06 AM Interpretation:134 Performing Lab: Notes/Report: 134 blood glucose 134 74 - 106 mg/dL Glycohemoglobin A1c (in hous e) Reviewed date:04/08/2024 09:08:06 AM Interpretation:6.7 Performing Lab: Notes/Report: 6.7 glycohemoglobin 6.7% 5 - 6.5 % P-Comprehensive Metabolic Pa odette (CMP) Reviewed date:04/08/2024 09:08:06 AM Interpretation: Performing Lab: Notes/Report: Test performed by [employer], [facility] [place] , [address], [place] [address] Jose Walls MD, Family Services Worker CLIA: [id number] Sodium 140 135-145 mmol/L Potassium 4.4 3.5-5.3 mmol/L Chloride 102 97-108 mmol/L CO2 27 22-32 mmol/L Glucose 101 65-99 mg/dL BUN 14 8-23 mg/dL Creatinine 0.88 0.50-1.00 mg/dL Calcium 10.0 8.6-10.4 mg/dL eGFR by Creatinine 69 >59 mL/min/1.73m2 Protein 7.2 6.0-8.3 g/dL Albumin 4.5 3.5-5.3 g/dL Alkaline Phosphatase 111 35-121 IU/L ALT (SGPT) 26 <5-47 IU/L AST (SGOT) 22 <5-40 IU/L Bilirubin, Total 0.4 <0.2-1.2 mg/dL A/G Ratio 1.7 1.1-2.5 P-Lipid Panel Reviewed date:04/08/2024 09:08:06 AM Interpretation: Performing Lab: Notes/Report: Test performed by [employer], [address] , [address], [place] [address] Jose Walls MD, Family Services Worker CLIA: [id number] Cholesterol 145 <200 mg/dL Triglycerides 129 <150 mg/dL HDL Cholesterol 56 >39 mg/dL Cholesterol / HDL Ratio 2.59 0.00-4.44 Ratio Non-HDL Cholesterol 89 <130 mg/dL LDL Cholesterol (Calculation) 63 <130 mg/dL LDL Cholesterol Levels* Less than 100 mg/dL Optimal 100 to 129 mg/dL Near Optimal/ Above Optimal 130 to 159 mg/dL Borderline High 160 to 189 mg/dL High 190 mg/dL and above Very High * Categories as recommended by the 2004 ATPIII guidelines LDL/HDL Ratio 1.1 <3.3 Ratio LDL Cholesterol Patient History Test Date: 04/07/2024 LDL Results: 63 Units: mg/dL % Change: - P-TSH reflex to FT4 Reviewed date:04/08/2024 09:08:06 AM Interpretation: Performing Lab: Notes/Report: Test performed by [employer] [address] [place] [address] , [address], [place] [address] Jose Walls MD, Family Services Worker CLIA: [id number] TSH reflex to FT4 1.74 0.43-5.25 mU/L P-Microalbumin/Creatinine, R andom Urine Sample Reviewed date:04/08/2024 09:08:06 AM Interpretation: Performing Lab: Notes/Report: Test performed by [employer] [address] [place] [address] , [address], [place] [address] Jose Walls MD, Family Services Worker CLIA: [id number] Albumin/Creatinine Ratio, Urine See Comment 0-30 ug/mg Unable to calculate Urine Albumin/Creatinine Ratio when urine creatinine or urine albumin fall outside established reportable range. Microalbumin, Urine, Random <0.3 Creatinine, Urine 24.7 REASON FOR VISIT 5 month check, due for GFR and urine m/a Medications Medication SIG (Take, Route, Frequency, Duration) Notes Start Date End Date Status Omeprazole 20 MG 1 cap(s) orally once a day; Duration: 90 days Active AutoPAP - as directed settings 12/13 as directed as directed diagnosis G47.33 07/16/2023 Active buPROPion HCl ER (XL) 150 MG 1 tablet in the morning Orally Once a day; Duration: 90 days 04/07/2024 Active Lisinopril 20 MG 1 tablet Orally Once a day; Duration: 90 days 11/10/2023 Active amLODIPine Besylate 5 MG 1 tablet Orally Once a day; Duration: 90 days 04/07/2024 Active Atorvastatin Calcium 40 MG 1 tab(s) orally once a day; Duration: 90 days Active Calcium 600 + Minerals 600-200 MG-UNIT 1 tab(s) orally 3 times a day; Duration: 30 day(s) Active metFORMIN HCl ER 500 MG TAKE 1 TABLET BY MOUTH EVERY DAY Orally Once a day; Duration: 90 days Active Immunizations Vaccine Route Administration Date Status Comme nts Fluzone High Dose (65yr and older) IM Intramuscular 04/07/2024 Administered Vital Signs Weight 201 lbs 04/07/2024 Blood pressure systolic 160 mm Hg 04/07/20 24 Blood pressure diastolic 94 mm Hg 024 Heart Rate 90 /min 04/07/2024 Height 64 in 04/07/2024 BMI 34.50 kg/m2 04/07/2024 Encounters Encounter Location Date Provider Diagnosis [facility] [address] [facility] [address] [facility] [address] [place] [id number] 04/07/2024 Reyumndo Donato Type 2 diabetes savita itus without complication, without long-term current use of insulin E11.9 ; Essential hypertension I10 ; Other hyperlipidemia E78.49 ; Depressive disorder F32.A and Encounter for immunization Z23 Assessments Encounter Date Diagnosis (ICD Code) Assessment Notes Treatment Notes Treatment Clinical Notes Section Notes 04/07/2024 Type 2 diabetes mellitus without complication, without long-term current use of insulin (ICD-10 - E11.9) 04/07/2024 Essential hypertension (ICD-10 - I10) Not at goal today 04/07/2024 Other hyperlipidemia (ICD-10 - E78.49) 04/07/2024 Depressive disorder (ICD-10 - F32.A) 04/07/2024 Encounter for immunization (ICD-10 - Z23) Plan Of Treatment Medication Medication Name Sig Start Date Stop Date Notes buPROPion HCl ER (XL) 150 MG 1 tablet in the morning Orally Once a day; Duration: 90 days 04/07/2024 Lisinopril 20 MG 1 tablet Orally Once a day; Duration: 90 days 11/10/2023 amLODIPine Besylate 5 MG 1 tablet Orally Once a day; Duration: 90 days 04/07/2024 Atorvastatin Calcium 40 MG 1 tab(s) oral ly once a day; Duration: 90 days metFORMIN HCl ER 500 MG TAKE 1 TABLET BY MOUTH EVERY DAY Orally Once a day; Duration: 90 days Treatment Notes Assessment Notes Essential hypertension Not at goal today Next Appt Details Follow Up: 4 Weeks, Reason: Provider Name:Reymundo connolly, 11/03/2025 09:00:00 AM, [address] [facility], [address], [place], [id number], Progress Notes * ZACH HYDE:1950 ([age] yo F)Acc No.[id number]:04/07/2024 Progress Notes Patient: YOKO GARCIA Provider: Obed Donato M.D. :1950 A ge:73 Y S ex:Female Date:04/07/2024 Address:[address] [place] [address] , [place] [id number] Subjective: * Chief Complaints: * 1 . 5 month check. 2. due for GFR and urine m/a. * HPI: C ardiology: 73 year old female presents with c/o Blood Pressure Elevated?Pt here to f/u on hypertension, pt states that when she checked her bp this morning it was elevated but she does not remember what is was. Pt states she checks bp a couple times a week and this morning was the first time it was elevated. c/o Hyperlipidemia P t is fasting today. E ndocrinology: c/o Recent Blood Sugars P t here to f/u on DM 2. * ROS: D ERMATOLOGY: no R maine. n o H angela. G ASTROENTEROLOGY: no N ausea. n o V omiting. U ROLOGY: no D ifficulty urinating. n o B lood in urine. * Medical History: T ype 2 Diabetes, Hypertension, Hyperlipidemia, Depression, Cologuard, Negative 01/2020, Sleep apnea. * Surgical History: T otal Hysterectomy 2006, Colonoscopy, Dr. Barbosa 2008. * Hospitalization/Major Diagno stic Procedure: D enies Past Hospitalization. * Family History: F ather: 95 yrs, diagnosed with Diabetes. M other: alive 97 yrs, diagnosed with Hypertension, Heart Disease, Stroke. 1 brother(s) , 1 sister(s) - healthy. 1 son(s) , 1 daughter(s) - healthy. . Sibling passed due to cancer. * Social History: C URRENT TOBACCO USE: No . C affeine: yes, frequency:daily. Alcohol: Yes, Type: , Frequency: occasional, ,Years: , Determination:. * Medications: T aking Calcium 600 + Minerals 600-200 MG-UNIT Tablet 1 tab(s) orally 3 times a day , Taking Omeprazole 20 MG Capsule Delayed Release 1 cap(s) orally once a day , Taking AutoPAP - - as directed settings 12/13 as directed as directed , Notes to Pharmacist: diagnosis G47.33, Taking Atorvastatin Calcium 40 MG Tablet 1 tab(s) orally once a day , Taking Lisinopril 20 MG Tablet 1 tablet Orally Once a day , Taking metFORMIN HCl ER 500 MG Tablet Extended Release 24 Hour TAKE 1 TABLET BY MOUTH EVERY DAY Orally Once a day , Medication List reviewed and reconciled with the patient * Allergies: N .K.D.A. Objective: * Vitals: W t:201, Temp:97.8, BP:160/94, HR:90, Nurse:miguel ángel, Ht: 64, BMI:34.50. * Examination: E ndocrinology: General Appearance: N AD. H EENT: u nremarkable.?Heart: R SR. L ungs: c lear to auscultation. E xtremities: n o leg edema.?Skin: n ormal, no rash. Assessment: * Assessment: 1. T ype 2 diabetes mellitus without complication, without long-term current use of insulin - E11.9 (Primary) 2 . E ssential hypertension - I10 3 . O ther hyperlipidemia - E78.49 4 . D epressive disorder - F32.A 5 . Encounter for immunization - Z23 Plan: * Treatment: Value Reference Range A /G Ratio 1.7 1.1-2.5 - * A lbumin 4.5 3.5-5.3 - g/dL * A lkaline Phosphatase 111 35-121 - IU/L * A LT (SGPT) 26 <5-47 - IU/L * A ST (SGOT) 22 <5-40 - IU/L * B ilirubin, Total 0.4 <0.2-1.2 - mg/dL * B UN 14 8-23 - mg/dL * C alcium 10.0 8.6-10.4 - mg/dL * C hloride 102 97-108 - mmol/L * C O2 27 22-32 - mmol/L * C reatinine 0.88 0.50-1.00 - mg/dL * G lucose 101 H 65-99 - mg/dL * P otassium 4.4 3.5-5.3 - mmol/L * S odium 140 135-145 - mmol/L * P rotein 7.2 6.0-8.3 - g/dL * e GFR by Creatinine 69 >59 - mL/min/1.73m2 * Reymundo Donato 04/08/2024 8:54:19 AM > Lab results are satisfactory, sent to to inform. Seema Arizmendi 04/08/2024 9:07:52 AM > Pt informed ?LAB: P-TSH reflex to FT4 (Collection Date & Time - 04/07/2024 09:59 AM)* Value Reference Range T SH reflex to FT4 1.74 0.43-5.25 - mU/L * TanmayReymundo Nguyen 04/08/2024 8:54:19 AM > Lab results are satisfactory, sent to to inform. Seema Arizmendi 04/08/2024 9:07:52 AM > Pt informed ?LAB: P-Microalbumin/Creatinine, Random Urine Sample (Collection Date & Time - 04/07/2024 09:59 AM)* Value Reference Range A lbumin/Creatinine Ratio, Urine See Comment L 0-30 - ug /mg * C reatinine, Urine 24.7 - mg/dL * M icroalbumin, Urine, Random <0.3 - mg/dL * Reymundo Donato 04/08/2024 8:54:19 AM > Lab results are satisfactory, sent to to inform. Seema Arizmendi 04/08/2024 9:07:52 AM > Pt informed ?LAB: Glucose (In-House) (Collection Date & Time - 04/07/2024)?134* Value Reference Range b lood glucose 134 74 - 106 mg/dL * Shama Rodriguez 04/07/2024 11: 04:54 AM > Reymundo Donato 04/08/2024 8:54:19 AM > Lab results are satisfactory, sent to to inform. Seema Arizmendi 04/08/2024 9:07:52 AM > Pt informed ?LAB: Glycohemoglobin A1c (in house) (Collection Date & Time - 04/07/2024)? 6.7* Value Reference Range g lycohemoglobin 6.7% 5 - 6.5 % * Shama Rodriguez 04/07/2024 11: 05:14 AM > Reymundo Donato 04/08/2024 8:54:19 AM > Lab results are satisfactory, sent to to inform. Seema Arizmendi 04/08/2024 9:07:52 AM > Pt informed 2.?Essential hypertension? Start amLODIPine Besylate Tablet, 5 MG, 1 tablet, Orally, Once a day, 90 days, 90 Tablet, Refills 1;?Refill Lisinopril Tablet, 20 MG, 1 tablet, Orally, Once a day, 90 days, 90, Refills 1.?LAB: P-Comprehensive Metabolic Panel (CMP) (Collection Date & Time - 04/07/2024 09:59 AM)* Value Reference Range A /G Ratio 1.7 1.1-2.5 - * A lbumin 4.5 3.5-5.3 - g/dL * A lkaline Phosphatase 111 35-121 - IU/L * A LT (SGPT) 26 <5-47 - IU/L * A ST (SGOT) 22 <5-40 - IU/L * B ilirubin, Total 0.4 <0.2-1.2 - mg/dL * B UN 14 8-23 - mg/dL * C alcium 10.0 8.6-10.4 - mg/dL * C hloride 102 97-108 - mmol/L * C O2 27 22-32 - mmol/L * C reatinine 0.88 0.50-1.00 - mg/dL * G lucose 101 H 65-99 - mg/dL * P otassium 4.4 3.5-5.3 - mmol/L * S odium 140 135-145 - mmol/L * P rotein 7.2 6.0-8.3 - g/dL * e GFR by Creatinine 69 >59 - mL/min/1.73m2 * Reymundo Donato 04/08/2024 8:54:19 AM > Lab results are satisfactory, sent to to inform. Seema Arizmendi 04/08/2024 9:07:52 AM > Pt informed Notes: Not at goal today??3.?Other hyperlipidemia? Refill Atorvastatin Calcium Tablet, 40 MG, 1 tab(s), orally, once a day, 90 days, 90, Refills 1. ?LAB: P-Comprehensive Metabolic Panel (CMP) (Collection Date & Time - 04/07/2024 09:59 AM)* Value Reference Range A /G Ratio 1.7 1.1-2.5 - * A lbumin 4.5 3.5-5.3 - g/dL * A lkaline Phosphatase 111 35-121 - IU/L * A LT (SGPT) 26 <5-47 - IU/L * A ST (SGOT) 22 <5-40 - IU/L * B ilirubin, Total 0.4 <0.2-1.2 - mg/dL * B UN 14 8-23 - mg/dL * C alcium 10.0 8.6-10.4 - mg/dL * C hloride 102 97-108 - mmol/L * C O2 27 22-32 - mmol/L * C reatinine 0.88 0.50-1.00 - mg/dL * G lucose 101 H 65-99 - mg/dL * P otassium 4.4 3.5-5.3 - mmol/L * S odium 140 135-145 - mmol/L * P rotein 7.2 6.0-8.3 - g/dL * e GFR by Creatinine 69 >59 - mL/min/1.73m2 * Reymundo Donato 04/08/2024 8:54:19 AM > Lab results are satisfactory, sent to to inform. Seema Arizmendi 04/08/2024 9:07:52 AM > Pt informed ?LAB: P-Lipid Panel (Collection Date & Time - 04/07/2024 09:59 AM)* Value Reference Range C holesterol / HDL Ratio 2.59 0.00-4.44 - Ratio * C holesterol 145 <200 - mg/dL * H DL Cholesterol 56 >39 - mg/dL * L DL Cholesterol (Calculation) 63 <130 - mg/d L * L DL/HDL Ratio 1.1 <3.3 - Ratio * N on-HDL Cholesterol 89 <130 - mg/dL * T riglycerides 129 <150 - mg/dL * Reymundo Donato 04/08/2024 8:54:19 AM > Lab results are satisfactory, sent to [facility] to inform. Seema Arizmendi 04/08/2024 9:07:52 AM > Pt informed 4.?Depressive disorder? Start buPROPion HCl ER (XL) Tablet Extended Release 24 Hour, 150 MG, 1 tablet in the morning, Orally, Once a day, 90 days, 90 Tablet, Refills 1.?? * Immunizations: Fluzone High Dose (65yr and older) : 0.5 mL (Route: Intramuscular) given by Shama Rodriguez on Left Deltoid (Encounter for immunization) * Procedure Codes: G 2211 Complex e/[place], [address] GLUCOSE TEST, 04903 GLYCATED HEMOGLOBIN TEST, Modifiers: QW * Follow Up: 4 Weeks * Images: Billing Information: * Visit Code: 62362 Office Visit, Est Pt., Level 4. * Procedure Codes: G2211 Complex e/[place]. [address] GLUCOSE TEST. 08772 GLYCATED HEMOGLOBIN TEST. Modifiers: QW * Electronic signature of Erika Donato MD on 06/03/2025 at 01:18 PM EST Sign off status: Pending * Provider: Obed Donato M.D. Date: Generated for Mary Jane adames/Char/Humbertoitting on: 08/04/2024 01:18 PM EST History and Physical Notes * HPI (History of Present Illness) Category Sub-Category Detail Notes Category Not es Endocrinology Recent Blood Sugars Pt here to f/u on DM 2 Cardiology Blood Pressure Elevated Pt here to f/u on hypertension, pt states that when she checked her bp this morning it was elevated but she does not remember what is was. Pt states she checks bp a couple times a week and this morning was the first time it was elevated Hyperlipidemia Pt is fasting today Examination Category Sub-Category Detail Notes Category Not es Endocrinology HEENT: unremarkable Heart: RSR Lungs: clear to auscultatio n Extremities: no leg edema General Appearance: NAD Skin: normal, no rash
--- OUTSIDE RECORDS SUMMARY | 2024-05-05 05:00 | XMS_ITS ---
[facility] Address [address] [place] [id number] Care Team Providers Care Photographic Intelligence Officer Name Role Phone Tanmay Reymundo Primary Care Provider Allergies No Known Allergies REASON FOR VISIT 4 weeks Medications Medication SIG (Take, Route, Frequency, Duration) Notes Start Date End Date Status Lisinopril 40 MG 1 tablet Orally Once a day; Duration: 90 days 05/05/2024 Active metFORMIN HCl ER 500 MG TAKE 1 TABLET BY MOUTH EVERY DAY Orally Once a day; Duration: 90 days Active Atorvastatin Calcium 40 MG 1 tab(s) orally once a day; Duration: 90 days Active Omeprazole 20 MG TAKE 1 CAPSULE BY MOUTH EVERY DAY; Duration: 90 Active amLODIPine Besylate 5 MG 1 tablet Orally Once a day 04/07/2024 Active Calcium 600 + Minerals 600-200 MG-UNIT 1 tab(s) orally 3 times a day; Duration: 30 day(s) Active buPROPion HCl ER (XL) 300 MG 1 tablet in the morning Orally Once a day; Duration: 30 day(s) 05/05/2024 Active AutoPAP - as directed settings 12/13 as directed as directed diagnosis G47.33 07/16/2023 Active Vital Signs Weight 201.6 lbs 05/05/2024 Blood pressure systolic 152 mm Hg 05/05/20 24 Blood pressure diastolic 90 mm Hg 024 Heart Rate 102 /min 05/05/2024 Height 64 in 05/05/2024 BMI 34.60 kg/m2 05/05/2024 Encounters Encounter Location Date Provider Diagnosis [place] [address] [place] [id number] 05/05/2024 Reymundo Donato Essential hypertensi on I10 and Depression with anxiety F41.8 Assessments Encounter Date Diagnosis (ICD Code) Assessment Notes Treatment Notes Treatment Clinical Notes Section Notes 05/05/2024 Essential hypertension (ICD-10 - I10) Not at goal today 05/05/2024 Depression with anxiety (ICD-10 - F41.8) Plan Of Treatment Medication Medication Name Sig Start Date Stop Date Notes Lisinopril 20 MG 1 tablet Orally Once a day 11/10/2023 Lisinopril 40 MG 1 tablet Orally Once a day; Duration: 90 days 05/05/2024 amLODIPine Besylate 5 MG 1 tablet Orally Once a day 2023 buPROPion HCl ER (XL) 300 MG 1 tablet in the morning Orally Once a day; Duration: 30 day(s) 05/05/2024 buPROPion HCl ER (XL) 150 MG 1 tablet in the morning Orally Once a day 04/07/2024 Treatment Notes Assessment Notes Essential hypertension Not at goal today Next Appt Details Follow Up: 4 to 6 Weeks, Roxie son: Provider Name:Reymundo Hair ry, 11/03/2025 09:00:00 AM, [address] [facility] [address] [facility], [address], [place], [id number], Progress Notes * ERROL HYDEEDOB:1950 ([age] yo F)Acc No.[id number]:05/05/2024 Progress Notes Patient: YOKO GARCIA Provider: Obed Donato M.D. :1950 A ge:73 Y S ex:Female Date:05/05/2024 Address:[address] [place] [address] , [place] [id number] Subjective: * Chief Complaints: * 1 . 4 weeks. * HPI: C ardiology: 73 year old female presents with c/o Blood Pressure Elevated?Pt here for 4 week f/u on hypertension, pt started on Amlodipine 5mg. Pt states that she has been checking her bp at home and it has been 140's/90's most of the time. P sychology: c/o depression P t here for 4 week f/u on depression and was started on Wellbutrin. Pt states she does feel like medication has helped. Pt does get out of bed and off of the couch to do things more than she did before. * ROS: D ERMATOLOGY: no R maine. n o H angela. G ASTROENTEROLOGY: no N ausea. n o V omiting. n o D iarrhea.? U ROLOGY: no D ifficulty urinating. n o B lood in urine. * Medical History: T ype 2 Diabetes, Hypertension, Hyperlipidemia, Depression, Cologuard, Negative 01/2020, Sleep apnea. * Surgical History: T otal Hysterectomy 2006, Colonoscopy, Dr. Barbosa 2008. * Family History: F ather: 95 yrs, [...] orally 3 times a day , Taking AutoPAP - - as directed settings 12/13 as directed as directed , Notes to Pharmacist: diagnosis G47.33, Taking metFORMIN HCl ER 500 MG Tablet Extended Release 24 Hour TAKE 1 TABLET BY MOUTH EVERY DAY Orally Once a day , Taking Atorvastatin Calcium 40 MG Tablet 1 tab(s) orally once a day , Taking buPROPion HCl ER (XL) 150 MG Tablet Extended Release 24 Hour 1 tablet in the morning Orally Once a day , Taking amLODIPine Besylate 5 MG Tablet 1 tablet Orally Once a day , Taking Lisinopril 20 MG Tablet 1 tablet Orally Once a day , Taking Omeprazole 20 MG Capsule Delayed Release TAKE 1 CAPSULE BY MOUTH EVERY DAY , Medication List reviewed and reconciled with the patient * Allergies: N .K.D.A. Objective: * Vitals: W t:201.6, Temp:97.8, BP:152/90, HR:102, Nurse:miguel ángel, Ht: 64, BMI:34.60. * Examination: P sychology: General Appearance: N AD. G rooming : a dequate.?Eye contact : n twin. M ood : p leasant. H eart: R SR. L ungs: c lear to auscultation. Assessment: * Assessment: 1. E ssential hypertension - I10 (Primary) 2 . D epression with anxiety - F41.8 Plan: * Treatment: 2. D epression with anxiety Stop buPROPion HCl ER (XL) Tablet Extended Release 24 Hour, 150 MG, 1 tablet in the morning, Orally, Once a day; S tart buPROPion HCl ER (XL) Tablet Extended Release 24 Hour, 300 MG, 1 tablet in the morning, Orally, Once a day, 30 day(s), 30. * Procedure Codes: G 2211 Complex e/m visit add on * Follow Up: 4 to 6 Weeks * Images: Billing Information: * Visit Code: 21636 Office Visit, Est Pt., Level 3. * Procedure Codes: G2211 Complex e/m visit add on. * Electronic signature of Erika Donato MD on 06/03/2025 at 01:17 PM EST Sign off status: Pending * Provider: Obed Donato M.D. Date: 07/05/2023 Generated for Mary Jane adames/Char/Perez on: 08/04/2024 01:17 PM EST History and Physical Notes * HPI (History of Present Illness) Category Sub-Category Detail Notes Category Not es Cardiology Blood Pressure Elevated Pt here for 4 week f/u on hypertension, pt started on Amlodipine 5mg. Pt states that she has been checking her bp at home and it has been 140's/90's most of the time Psychology depression Pt here for 4 we ek f/u on depression and was started on Wellbutrin. Pt states she does feel like medication has helped. Pt does get out of bed and off of the couch to do things more than she did before Examination Category Sub-Category Detail Notes Category Not es Psychology Heart: RSR Lungs: clear to auscultatio n General Appearance: NAD Grooming : adequate Eye contact : normal Mood : pleasant
--- OUTSIDE RECORDS SUMMARY | 2024-06-09 05:00 | XMS_ITS ---
Author Organization [facility] Address [address] [facility] 36 [facility] [address] [place] [id number] Care Team Providers Care Morals Squad Police Officer Name Role Phone Reymundo Donato Primary Care Provider [phone] Allergies No Known Allergies REASON FOR VISIT 5 weeks Medications Medication SIG (Take, Route, Frequency, Duration) Notes Start Date End Date Status Atorvastatin Calcium 40 MG 1 tab(s) orally once a day; Duration: 90 days Active buPROPion HCl ER (XL) 300 MG 1 tablet in the morning Orally Once a day; Duration: 90 days 05/05/2024 Active amLODIPine Besylate 5 MG 1 tablet Orally Once a day 04/07/2024 Active Lisinopril 40 MG 1 tablet Orally Once a day 05/05/2024 Active Omeprazole 20 MG TAKE 1 CAPSULE BY MOUTH EVERY DAY; Duration: 90 days Active AutoPAP - as directed settings 12/13 as directed as directed diagnosis G47.33 07/16/2023 Active Calcium 600 + Minerals 600-200 MG-UNIT 1 tab(s) orally 3 times a day; Duration: 30 day(s) Active metFORMIN HCl ER 500 MG TAKE 1 TABLET BY MOUTH EVERY DAY Orally Once a day; Duration: 90 days Active Vital Signs Weight 196 lbs 06/09/2024 Blood pressure systolic 140 mm Hg 06/09/20 24 Blood pressure diastolic 78 mm Hg 024 Heart Rate 100 /min 06/09/2024 Height 64 in 06/09/2024 BMI 33.64 kg/m2 06/09/2024 Encounters Encounter Location Date Provider Diagnosis [place] [address] [facility] [address] [facility] [address] [place] [id number] 06/09/2024 Reymundo Tanmay Essential hypertensi on I10 and Depression with anxiety F41.8 Assessments Encounter Date Diagnosis (ICD Code) Assessment Notes Treatment Notes Treatment Clinical Notes Section Notes 06/09/2024 Essential hypertension (ICD-10 - I10) 06/09/2024 Depression with anxiety (ICD-10 - F41.8) Plan Of Treatment Medication Medication Name Sig Start Date Stop Date Notes buPROPion HCl ER (XL) 300 MG 1 tablet in the morning Orally Once a day; Duration: 90 days 05/05/2024 amLODIPine Besylate 5 MG 1 tablet Orally Once a day 2023 Lisinopril 40 MG 1 tablet Orally Once a day 05/05/2024 Next Appt Details Follow Up: 5 Months, Reason: Provider Name:Reymundo Hair , 11/03/2025 09:00:00 AM, [address] [facility], [address], [place], [id number], Progress Notes * REREEMILYOB:1950 ([age] yo F)Acc No.[id number]:06/09/2024 Progress Notes Patient: YOKO GARCIA Provider: Obed Donato M.D. :1950 A ge:73 Y S ex:Female Date:06/09/2024 Address:[address] [place], [place] [address] Subjective: * Chief Complaints: * 1 . 5 weeks. * HPI: C ardiology: 73 year old female presents with c/o Blood Pressure Elevated?Pt here for 5 week f/u on hypertension. Pt was seen 05/05/2024 and Lisinopril was increased to 40mg. * ROS: D ERMATOLOGY: no R maine. [...] DAY Orally Once a day , Taking buPROPion HCl ER (XL) 300 MG Tablet Extended Release 24 Hour 1 tablet in the morning Orally Once a day , Taking Lisinopril 40 MG Tablet 1 tablet Orally Once a day , Taking amLODIPine Besylate 5 MG Tablet 1 tablet Orally Once a day , Taking Omeprazole 20 MG Capsule Delayed Release TAKE 1 CAPSULE BY MOUTH EVERY DAY , Taking Atorvastatin Calcium 40 MG Tablet 1 tab(s) orally once a day , Medication List reviewed and reconciled with the patient * Allergies: N .K.D.A. Objective: * Vitals: W t:196, Temp:97.9, BP:140/78, HR:100, Nurse:miguel ángel, Ht: 64, Repeat BP:130/76, BMI:33.64. * Examination: P sychology: General Appearance: N AD. G rooming : a dequate.?Eye contact : n orwalter. M ood : p ami. H eart: R SR. L ungs: c lear to auscultation. Assessment: * Assessment: 1. E ssential hypertension - I10 (Primary) 2 . D epression with anxiety - F41.8 Plan: * Treatment: 2. D epression with anxiety Refill buPROPion HCl ER (XL) Tablet Extended Release 24 Hour, 300 MG, 1 tablet in the morning, Orally, Once a day, 90 days, 90, Refills 1. * Procedure Codes: G 2211 Complex e/m visit add on * Follow Up: 5 Months * Images: Billing Information: * Visit Code: 82922 Office Visit, Est Pt., Level 3. * Procedure Codes: G2211 Complex e/m visit add on. * Electronic signature of Erika Donato MD on 06/03/2025 at 01:18 PM EST Sign off status: Pending * Provider: Obed Donato M.D. Date: 08/10/2023 Generated for Mary Jane adames/Char/Darwinsmitting on: 08/04/2024 01:18 PM EST History and Physical Notes * HPI (History of Present Illness) Category Sub-Category Detail Notes Category Not es Cardiology Blood Pressure Elevated Pt here for 5 week f/u on hypertension. Pt was seen 05/05/2024 and Lisinopril was increased to 40mg Examination Category Sub-Category Detail Notes Category Not es Psychology Heart: RSR Lungs: clear to auscultatio n General Appearance: NAD Grooming : adequate Eye contact : normal Mood : pleasant
--- OUTSIDE RECORDS SUMMARY | 2024-11-03 04:30 | XMS_ITS ---
Author Organization [facility] Address [address] [facility] [address] [place], [place] [id number] Care Team Providers Care Band Tumbler Name Role Phone Reymundo Donato Primary Care Provider Allergies No Known Allergies Results Component Value Reference Range Notes Glucose (In-House) Reviewed date:11/04/2024 10:48:04 AM Interpretation:133 Performing Lab: Notes/Report: 133 blood glucose 133 74 - 106 mg/dL CBC Venipuncture (in house) Reviewed date:11/04/2024 10:48:04 AM Interpretation:Normal Performing Lab: Notes/Report: Normal wbc 7.2 3.5 - 10 lymph 28.5% 15 - 50 mid 6.2% 2 - 15 gran 65.3% 35 - 80 rbc 5.33 3.5 - 5.5 hgb 15.1 11.5 - 16.5 hct 45.7 35 - 55 mcv 85.6 75 - 100 mch 28.3 25 - 35 mchc 33.1 31 - 38 platlet 295 100 - 400 Glycohemoglobin A1c (in hous e) Reviewed date:11/04/2024 10:48:04 AM Interpretation:6.6 Performing Lab: Notes/Report: 6.6 glycohemoglobin 6.6% 5 - 6.5 % P-Basic Metabolic Panel (BMP ) Reviewed date:11/04/2024 10:48:04 AM Interpretation:Normal Performing Lab: Notes/Report: Test performed by [facility], [facility] , [address], [place] [address] Jose Walls MD, Zipper Measurer CLIA: [id number] Sodium 140 135-145 mmol/L Potassium 4.5 3.5-5.3 mmol/L Chloride 102 97-108 mmol/L CO2 25 22-32 mmol/L Glucose 105 65-99 mg/dL BUN 16 8-23 mg/dL Creatinine 0.98 0.50-1.00 mg/dL Calcium 10.0 8.6-10.4 mg/dL eGFR by Creatinine 61 >59 mL/min/1.73m2 REASON FOR VISIT 5 months Medications Medication SIG (Take, Route, Frequency, Duration) Notes Start Date End Date Status AutoPAP - as directed settings 12/13 as directed as directed diagnosis G47.33 07/16/2023 Active Calcium 600 + Minerals 600-200 MG-UNIT 1 tab(s) orally 3 times a day; Duration: 30 day(s) Active Lisinopril 40 MG 1 tablet Orally Once a day; Duration: 90 days 05/05/2024 Active buPROPion HCl ER (XL) 300 MG 1 tablet in the morning Orally Once a day; Duration: 90 days 05/05/2024 Active Atorvastatin Calcium 40 MG 1 tab(s) orally once a day; Duration: 90 days Active Omeprazole 20 MG TAKE 1 CAPSULE BY MOUTH EVERY DAY; Duration: 90 days Active amLODIPine Besylate 5 MG TAKE 1 TABLET BY MOUTH DAILY; Duration: 90 days Active Ozempic (0.25 or 0.5 MG/DOSE) 2 MG/3ML 0.25 mg Subcutaneous once weekly 11/03/2024 Active Problems Problem Type SNOMED Code ICD Code Onset Dates Problem Status W/U Status Risk Notes Problem Body mass index 30.00 to 34.99 ([id number]) BMI 31.0-31.9,a dult (Z68.31) Active confirmed Vital Signs Weight 184.4 lbs 11/03/2024 Blood pressure systolic 138 mm Hg 11/04/19 25 Blood pressure diastolic 78 mm Hg 025 Heart Rate 85 /min 11/03/2024 Height 64 in 11/03/2024 BMI 31.65 kg/m2 11/03/2024 Encounters Encounter Location Date Provider Diagnosis [facility] [address] [place], [place] [id number] 11/03/2024 Reymundo Donato Type 2 diabetes savita itus without complication, without long-term current use of insulin E11.9 ; Essential hypertension I10 ; Depression with anxiety F41.8 ; Gastroesophageal reflux disease, unspecified whether esophagitis present K21.9 ; punch operator use of drug Z79.899 and BMI 31.0-31.9,adult Z68.31 Assessments Encounter Date Diagnosis (ICD Code) Assessment Notes Treatment Notes Treatment Clinical Notes Section Notes 11/03/2024 Type 2 diabetes mellitus without complication, without long-term current use of insulin (ICD-10 - E11.9) 11/03/2024 Essential hypertension (ICD-10 - I10) 11/03/2024 Depression with anxiety (ICD-10 - F41.8) 11/03/2024 Gastroesophageal reflux disease, unspecified whether esophagitis present (ICD-10 - K21.9) 11/03/2024 punch operator use of drug (ICD-10 - Z79.899) 11/03/2024 BMI 31.0-31.9,adult (ICD-10 - Z68.31) Plan Of Treatment Medication Medication Name Sig Start Date Stop Date Notes Lisinopril 40 MG 1 tablet Orally Once a day; Duration: 90 days 05/05/2024 buPROPion HCl ER (XL) 300 MG 1 tablet in the morning Orally Once a day; Duration: 90 days 05/05/2024 Atorvastatin Calcium 40 MG 1 tab(s) oral ly once a day; Duration: 90 days metFORMIN HCl ER 500 MG TAKE 1 TABLET BY MOUTH EVERY DAY Omeprazole 20 MG TAKE 1 CAPSULE BY MO UTH EVERY DAY; Duration: 90 days amLODIPine Besylate 5 MG TAKE 1 TABLET B Y MOUTH DAILY; Duration: 90 days Ozempic (0.25 or 0.5 MG/DOSE ) 2 MG/3ML 0.25 mg Subcutaneous once weekly 11/03/2024 Next Appt Details Follow Up: 6 Months, Reason: Provider Name:Reymundo Hair ry, 11/03/2025 09:00:00 AM, [address], [address], [place], [id number], Progress Notes * EMILY HYDEOB:1950 ([age] yo F)Acc No.[id number]:11/03/2024 Progress Notes Patient: ERROL GARCIAE Provider: Obed Donato M.D. :1950 A ge:74 Y S ex:Female Date:11/03/2024 Address:[facility] [address] , [id number] Subjective: * Chief Complaints: * 1 . 5 months. * HPI: C ardiology: 74 year old female presents with c/o Blood Pressure Elevated?Pt here to f/u on hypertension, states she is doing well and does not have any concerns. c/o Hyperlipidemia P t is fasting today. [...] yrs, diagnosed with Diabetes. M other: alive 89 yrs, diagnosed with Hypertension, Heart Disease, Stroke. [...] CAPSULE BY MOUTH EVERY DAY , Taking metFORMIN HCl ER 500 MG Tablet Extended Release 24 Hour TAKE 1 TABLET BY MOUTH EVERY DAY , Taking amLODIPine Besylate 5 MG Tablet TAKE 1 TABLET BY MOUTH DAILY , Medication List reviewed and reconciled with the patient * Allergies: N .K.D.A. Objective: * Vitals: W t: 184.4, Temp: 98.0, BP: 138/78, HR: 85, Nurse: miguel ángel, Ht: 64, Repeat BP: 124/68, BMI:31.65. * Examination: E ndocrinology: General Appearance: N AD. H EENT: u nremarkable.?Heart: R SR. L ungs: c lear to auscultation. E xtremities: n o leg edema.?Skin: n ormal, no rash. Assessment: * Assessment: 1. T ype 2 diabetes mellitus without complication, without long-term current use of insulin - E11.9 (Primary) 2 . E ssential hypertension - I10 3 . D epression with anxiety - F41.8 4 . G astroesophageal reflux disease, unspecified whether esophagitis present - K21.9 5 . L cassandra term use of drug - Z79.899 ?6. B PR 31.0-31.9,adult - Z68.31 Plan: * Treatment: Value Reference Range B UN 16 8-23 - mg/dL * C alcium 10.0 8.6-10.4 - mg/dL * C hloride 102 97-108 - mmol/L * C O2 25 22-32 - mmol/L * C reatinine 0.98 0.50-1.00 - mg/dL * G lucose 105 H 65-99 - mg/dL * P otassium 4.5 3.5-5.3 - mmol/L * S odium 140 135-145 - mmol/L * e GFR by Creatinine 61 >59 - mL/min/1.73m2 * Eloise Schmidt 11/04/2024 08:4 3:42 AM > please notify of satisfactory labs. Justine Hamilton 11/04/2024 9:32:41 AM > LM for pt to return call Justine [place] 11/04/2024 10:47:08 AM > Pt informed ?LAB: Glucose (In-House) (Collection Date & Time - 11/03/2024)?133* Value Reference Range b lood glucose 133 74 - 106 mg/dL * Justine [place] 11/03/2024 10:40:3 0 AM > Eloise Schmidt 11/04/2024 08:43:42 AM > please notify of satisfactory labs. Justine [place] 11/04/2024 9:32:41 AM > LM for pt to return call Justine [place] 11/04/2024 10:47:08 AM > Pt informed ?LAB: Glycohemoglobin A1c (in house) (Collection Date & Time - 11/03/2024)? 6.6* Value Reference Range g lycohemoglobin 6.6% 5 - 6.5 % * Justine [place] 11/03/2024 10:43:3 9 AM > Roxana Eloise 11/04/2024 08:43:42 AM > please notify of satisfactory labs. Justine [place] 11/04/2024 9:32:41 AM > LM for pt to return call Justine [place] 11/04/2024 10:47:08 AM > Pt informed 2.?Essential hypertension? Refill Lisinopril Tablet, 40 MG, 1 tablet, Orally, Once a day, 90 days, 90, Refills 1;?Refill amLODIPine Besylate Tablet, 5 MG, TAKE 1 TABLET BY MOUTH DAILY, 90 days, 90 Tablet, Refills 1.?LAB: P-Basic Metabolic Panel (BMP) (Collection Date & Time - 11/03/2024 09:13 AM)?Normal* Value Reference Range B UN 16 8-23 - mg/dL * C alcium 10.0 8.6-10.4 - mg/dL * C hloride 102 97-108 - mmol/L * C O2 25 22-32 - mmol/L * C reatinine 0.98 0.50-1.00 - mg/dL * G lucose 105 H 65-99 - mg/dL * P otassium 4.5 3.5-5.3 - mmol/L * S odium 140 135-145 - mmol/L * e GFR by Creatinine 61 >59 - mL/min/1.73m2 * Eloise Schmidt 11/04/2024 08:4 3:42 AM > please notify of satisfactory labs. Justine Hamilton 11/04/2024 9:32:41 AM > LM for pt to return call King Justine 11/04/2024 10:47:08 AM > Pt informed 3.?Depression with anxiety? Refill buPROPion HCl ER (XL) Tablet Extended Release 24 Hour, 300 MG, 1 tablet in the morning, Orally, Once a day, 90 days, 90, Refills 1.??4.?Gastroesophageal reflux disease, unspecified whether esophagitis present? Refill Omeprazole Capsule Delayed Release, 20 MG, TAKE 1 CAPSULE BY MOUTH EVERY DAY, 90 days, 90 Capsule, Refills 1.??5.?half-way use of drug?LAB: CBC Venipuncture (in house) (Collection Date & Time - 11/03/2024)? Normal* Value Reference Range w bc 7.2 3.5 - 10 * l ymph 28.5% 15 - 50 * m id 6.2% 2 - 15 * g ran 65.3% 35 - 80 * r bc 5.33 3.5 - 5.5 * h gb 15.1 11.5 - 16.5 * h ct 45.7 35 - 55 * m cv 85.6 75 - 100 * m ch 28.3 25 - 35 * m chc 33.1 31 - 38 * p latlet 295 100 - 400 * Justine Hamilton 11/03/2024 10:42:1 1 AM > Eloise Schmidt 11/04/2024 08:43:42 AM > please notify of satisfactory labs. Justine [place] 11/04/2024 9:32:41 AM > LM for pt to return call King Justine 11/04/2024 10:47:08 AM > Pt informed 6.?Others? Refill Atorvastatin Calcium Tablet, 40 MG, 1 tab(s), orally, once a day, 90 days, 90, Refills 1. ? * Procedure Codes: G 2211 Complex e/[place], [address] GLUCOSE TEST, 08911 GLYCATED HEMOGLOBIN TEST, Modifiers: QW , 71276 CBC WITH AUTO DIFF, 3044F HG A1C LEVEL LT 7.0%, G8752 MOST RECENT SYSTOLIC BP < 140MM HG, G8754 MOST RECENT DIASTOLIC BP < 90MM HG * Follow Up: 6 Months * Images: Billing Information: * Visit Code: 52038 Office Visit, Est Pt., Level 4. * Procedure Codes: G2211 Complex e/[place]. [address] GLUCOSE TEST. 67928 GLYCATED HEMOGLOBIN TEST. Modifiers: QW 94706 CBC WITH AUTO DIFF. 3044F HG A1C LEVEL LT 7.0%. G8752 MOST RECENT SYSTOLIC BP < 140MM HG. G8754 MOST RECENT DIASTOLIC BP < 90MM HG. * Electronic signature of Erika Donato MD on 06/03/2025 at 01:18 PM EST Sign off status: Pending * Provider: Obed Donato M.D. Date: 0 11/03/2024 Generated for Mary Jane adames/Char/Perez on: 1 08/04/2024 01:18 PM EST History and Physical Notes * HPI (History of Present Illness) Category Sub-Category Detail Notes Category Not es Endocrinology Recent Blood Sugars Pt here to f/u on DM 2 Cardiology Blood Pressure Elevated Pt here to f/u on hypertension, states she is doing well and does not have any concerns Hyperlipidemia Pt is fasting today Examination Category Sub-Category Detail Notes Category Not es Endocrinology HEENT: unremarkable Heart: RSR Lungs: clear to auscultatio n Extremities: no leg edema General Appearance: NAD Skin: normal, no rash
--- OUTSIDE RECORDS SUMMARY | 2024-11-10 04:30 | XMS_ITS ---
Author Organization [facility] Address [address] [facility] [address] [facility] [address] [place] [id number] Care Team Providers Care Roll Icer Name Role Phone Reymundo Donato Primary Care Provider Allergies No Known Allergies REASON FOR VISIT Ozempic show how to use it Medications Medication SIG (Take, Route, Frequency, Duration) [...] times a day; Duration: 30 day(s) Active CPAP Supplies - as directed as directed 11/03/2024 Active Ozempic (0.25 or 0.5 MG/DOSE) 2 MG/3ML 0.25 mg Subcutaneous once weekly 11/03/2024 Active amLODIPine Besylate 5 MG TAKE 1 TABLET BY MOUTH DAILY; Duration: 90 days Active Omeprazole 20 MG TAKE 1 CAPSULE BY MOUTH EVERY DAY; Duration: 90 days Active Vital Signs Weight 184 lbs 11/10/2024 Blood pressure systolic 134 mm Hg 11/11/19 25 Blood pressure diastolic 76 mm Hg 025 Heart Rate 92 /min 11/10/2024 Height 64 in 11/10/2024 BMI 31.58 kg/m2 11/10/2024 Encounters Encounter Location Date Provider Diagnosis [facility] [address] [place] [id number] 11/10/2024 Reymundo Donato Plan Of Treatment Next Appt Details Provider Name:Reymundosusie Hair ry, 11/03/2025 09:00:00 AM, [address], [address], [place], [id number], Progress Notes * ERROL HYDEMICHAELOB:1950 ([age] yo F)Acc No.[id number]:11/10/2024 Progress notes Patient: YOKO GARCIA Provider: Obed Donato M.D. :1950 A ge:74 Y S ex:Female Date:11/10/2024 Address:[address] [place], [place] [address] Subjective: * Chief Complaints: * 1 . Ozempic show how to use it. * HPI: H PI: 74 year old female presents with c/o Here for follow up on:?diabetes. Pt is here for demontsration on how to use Ozempic once a week. * Medical History: T ype 2 Diabetes, Hypertension, Hyperlipidemia, Depression, Cologuard, Negative 01/2020, Sleep apnea. * Medications: T aking Calcium 600 + [...] CAPSULE BY MOUTH EVERY DAY , Taking amLODIPine Besylate 5 MG Tablet TAKE 1 TABLET BY MOUTH DAILY , Taking Ozempic (0.25 or 0.5 MG/DOSE) 2 MG/3ML Solution Pen- injector 0.25 mg Subcutaneous once weekly , Taking CPAP Supplies - - as directed as directed , Medication List reviewed and reconciled with the patient * Allergies: N .K.D.A. Objective: * Vitals: W t: 184, Temp: 98.0, BP: 134/76, HR: 92, Nurse: BRENDAN, Ht: 64, BMI:31.58. Assessment: Plan: * Treatment: * Images: Billing Information: * Visit Code: * Procedure Codes: * Electronic signature of Erika Donato MD on 06/03/2025 at 01:18 PM EST Sign off status: Pending * Provider: Obed Donato M.D. Date: 0 11/10/2024 Generated for Mary Jane adames/Char/Humbertoitting on: 1 08/04/2024 01:18 PM EST History and Physical Notes * HPI (History of Present Illness) Category Sub-Category Detail Notes Category Not es HPI Here for follow up on: diabetes. Pt is here for demontsration on how to use Ozempic once a week
--- OUTSIDE RECORDS SUMMARY | 2025-05-06 04:30 | XMS_ITS ---
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 Role Phone Reymundo Donato Primary Care Provider Allergies No Known Allergies Results Component Value Reference Range Notes Glucose (In-House) Reviewed date:05/06/2025 02:26:46 PM Interpretation:119 Performing Lab: Notes/Report: 119 blood glucose 119 74 - 106 mg/dL Glycohemoglobin A1c (in hous e) Reviewed date:05/06/2025 02:26:56 PM Interpretation:5.9 Performing Lab: Notes/Report: 5.9 glycohemoglobin 5.9% 5 - 6.5 % P-Comprehensive Metabolic Pa odette (CMP) Reviewed date:05/09/2025 02:18:53 PM Interpretation:Normal Performing Lab: Notes/Report: Test performed by [facility], Swidjit [address] [place] [address] , [address], [place] [address] Jose Walls MD, Reverser CLIA: [id number] Sodium 137 135-145 mmol/L Potassium 4.7 3.5-5.3 mmol/L Chloride 103 97-108 mmol/L CO2 24 20-32 mmol/L Glucose 87 65-99 mg/dL BUN 18 8-23 mg/dL Creatinine 0.88 0.50-1.00 mg/dL Calcium 10.1 8.6-10.4 mg/dL eGFR by Creatinine 69 >59 mL/min/1.73m2 Protein 7.0 6.0-8.3 g/dL Albumin 4.4 3.5-5.3 g/dL Alkaline Phosphatase 98 35-121 IU/L ALT (SGPT) 21 <5-47 IU/L AST (SGOT) 17 <5-40 IU/L Bilirubin, Total 0.4 <0.2-1.2 mg/dL A/G Ratio 1.7 1.1-2.5 P-Lipid Panel Reviewed date:05/09/2025 02:18:53 PM Interpretation:Normal Performing Lab: Notes/Report: Test performed by [facility] [address] [place] [address] , [place] [address] Jose Walls MD, Reverser CLIA: [id number] Lipid Panel Footnote See Below *Based on optimal reference values. Please refer to the DOS for additional information regarding diagnostic lipid reference ranges, patient management based on the recently updated lipid guidelines ([place] [employer]/[place] [employer] Task Force on Clinical Practice Guidelines (2018), and pediatric diagnostic lipid reference values (<18 years old). Total Cholesterol 141 <200 mg/dL Triglycerides 65 <150 mg/dL HDL Cholesterol 59 >50 mg/dL Total Cholesterol / HDL Ratio* 2.39 <3.99 Rati o Non-HDL Cholesterol 82 <130 mg/dL LDL Cholesterol (Calculation) 69 <100 mg/dL LDL / HDL Ratio* 1.17 <1.99 Ratio LDL Cholesterol Patient History Test Date: 04/07/2024 LDL Results: 63 Units: mg/dL % Change: - Test Date: 05/06/2025 LDL Results: 69 Units: mg/dL % Change: +9% P-TSH reflex to FT4 Reviewed date:05/09/2025 02:18:53 PM Interpretation:Normal Performing Lab: Notes/Report: Test performed by [facility] [address] [place], [place] [address] [place] , [place] [address] Jose Walls MD, Reverser CLIA: [id number] TSH reflex to FT4 1.40 0.43-5.25 mU/L P-Microalbumin/Creatinine, R andom Urine Sample Reviewed date:05/09/2025 02:18:53 PM Interpretation:Normal Performing Lab: Notes/Report: Test performed by [facility] [address] [place], [place] [address] [place] , [facility], [place] [address] Jose Walls MD, Reverser CLIA: [id number] Albumin/Creatinine Ratio, Urine <13.04 0-30 ug/m g Microalbumin, Urine, Random <0.3 Creatinine, Urine 23.0 REASON FOR VISIT 6 months Medications Medication SIG (Take, Route, Frequency, Duration) Notes Start Date End Date Status AutoPAP - as directed settings 12/13 as directed as directed diagnosis G47.33 07/16/2023 Active Calcium 600 + Minerals 600-200 MG-UNIT 1 tab(s) orally 3 times a day; Duration: 30 day(s) Active CPAP Supplies - as directed as directed 11/03/2024 Active Omeprazole 20 MG TAKE 1 CAPSULE BY MOUTH EVERY DAY; Duration: 90 days Active buPROPion HCl ER (XL) 300 MG 1 tablet in the morning Orally Once a day; Duration: 90 days 05/05/2024 Active amLODIPine Besylate 5 MG TAKE 1 TABLET BY MOUTH DAILY; Duration: 90 days Active Ozempic (0.25 or 0.5 MG/DOSE) 2 MG/3ML 0.5 mg Subcutaneous once weekly; Duration: 30 days 11/03/2024 Active Atorvastatin Calcium 40 MG 1 tab(s) orally once a day; Duration: 90 days Active Lisinopril 40 MG 1 tablet Orally Once a day; Duration: 90 days 05/05/2024 Active Immunizations Vaccine Route Administration Date Status Comme nts Fluzone High Dose (65yr and older) IM Intramuscular 05/06/2025 Administered Vital Signs Weight 169.2 lbs 05/06/2025 Blood pressure systolic 132 mm Hg 05/06/20 25 Blood pressure diastolic 78 mm Hg 025 Heart Rate 74 /min 05/06/2025 Height 64 in 05/06/2025 BMI 29.04 kg/m2 05/06/2025 Encounters Encounter Location Date Provider Diagnosis [facility] [address] [facility] [address] [place] [address], [place] [id number] 05/06/2025 Reymundo Donato Essential hypertensi on I10 ; Type 2 diabetes mellitus without complication, without long-term current use of insulin E11.9 ; Gastroesophageal reflux disease, unspecified whether esophagitis present K21.9 ; Anxiety F41.9 ; Other hyperlipidemia E78.49 and Encounter for immunization Z23 Assessments Encounter Date Diagnosis (ICD Code) Assessment Notes Treatment Notes Treatment Clinical Notes Section Notes 05/06/2025 Essential hypertension (ICD-10 - I10) 05/06/2025 Type 2 diabetes mellitus without complication, without long-term current use of insulin (ICD-10 - E11.9) 05/06/2025 Gastroesophageal reflux disease, unspecified whether esophagitis present (ICD-10 - K21.9) 05/06/2025 Anxiety (ICD-10 - F41.9) 05/06/2025 Other hyperlipidemia (ICD-10 - E78.49) 05/06/2025 Encounter for immunization (ICD-10 - Z23) Plan Of Treatment Medication Medication Name Sig Start Date Stop Date Notes Omeprazole 20 MG TAKE 1 CAPSULE BY [facility] EVERY DAY; Duration: 90 days buPROPion HCl ER (XL) 300 MG 1 tablet in the morning Orally Once a day; Duration: 90 days 05/05/2024 amLODIPine Besylate 5 MG TAKE 1 TABLET B Y MOUTH DAILY; Duration: 90 days Ozempic (0.25 or 0.5 MG/DOSE ) 2 MG/3ML 0.5 mg Subcutaneous once weekly; Duration: 30 days 11/03/2024 Atorvastatin Calcium 40 MG 1 tab(s) oral ly once a day; Duration: 90 days Lisinopril 40 MG 1 tablet Orally Once a day; Duration: 90 days 05/05/2024 Next Appt Details Follow Up: 6 Months, Reason: Provider Name:Reymundo Hair ry, 11/03/2025 09:00:00 AM, [address], [address], [place], [place], [id number], Progress Notes * ERROL HYDEEDOB:1950 ([age] yo F)Acc No.[id number]:05/06/2025 Progress Notes Patient: YOKO GARCIA Provider: Obed Donato M.D. :1950 A ge:74 Y S ex:Female Date:05/06/2025 Address:[address] [place], [place] [id number] Subjective: * Chief Complaints: * 1 . 6 months. * HPI: C ardiology: 74 year old female presents with c/o Blood Pressure Elevated?Pt here for 6 month follow up on Hypertension.Pt states she has no new concerns at this time. Pt would like flu shot. c/o Hyperlipidemia P t is fasting today. E ndocrinology: c/o Recent Blood Sugars. * Medical History: T ype 2 Diabetes, Hypertension, Hyperlipidemia, Depression, Cologuard, Negative 01/2020, Sleep apnea. * Surgical History: T otal Hysterectomy 2006, Colonoscopy, Dr. Barbosa 2008. * Hospitalization/Major Diagno stic Procedure: D enies Past Hospitalization. * Family History: F ather: 95 yrs, diagnosed with Diabetes. M other: alive 98 yrs, diagnosed with Hypertension, Stroke, Heart Disease. 1 brother(s) , 1 sister(s) - healthy. [...] 1 TABLET BY MOUTH DAILY , Taking CPAP Supplies - - as directed as directed , Taking Ozempic (0.25 or 0.5 MG/DOSE) 2 MG/3ML Solution Pen-injector 0.5 mg Subcutaneous once weekly , Medication List reviewed and reconciled with the patient * Allergies: N .K.D.A. Objective: * Vitals: W t: 169.2, Temp: 98.0, BP: 132/78, HR: 74, Nurse: JOSH, Ht: 64, BMI:29.04. * Examination: E ndocrinology: General Appearance: N AD. H EENT: u nremarkable.?Heart: R SR. L ungs: c lear to auscultation. E xtremities: n o leg edema.?Skin: n ormal, no rash. Assessment: * Assessment: 1. E ssential hypertension - I10 (Primary) 2 . T ype 2 diabetes mellitus without complication, without long-term current use of insulin - E11.9 3 . G astroesophageal reflux disease, unspecified whether esophagitis present - K21.9 4 . A nxiety - F41.9 5 . O ther hyperlipidemia - E78.49 6 . E ncounter for immunization - Z23 Plan: * Treatment: Value Reference Range A /G Ratio 1.7 1.1-2.5 - * A lbumin 4.4 3.5-5.3 - g/dL * A lkaline Phosphatase 98 35-121 - IU/L * A LT (SGPT) 21 <5-47 - IU/L * A ST (SGOT) 17 <5-40 - IU/L * B ilirubin, Total 0.4 <0.2-1.2 - mg/dL * B UN 18 8-23 - mg/dL * C alcium 10.1 8.6-10.4 - mg/dL * C hloride 103 97-108 - mmol/L * C O2 24 20-32 - mmol/L * C reatinine 0.88 0.50-1.00 - mg/dL * G lucose 87 65-99 - mg/dL * P otassium 4.7 3.5-5.3 - mmol/L * S odium 137 135-145 - mmol/L * P rotein 7.0 6.0-8.3 - g/dL * e GFR by Creatinine 69 >59 - mL/min/1.73m2 * Reymundo Donato 05/07/2025 11:12:25 AM EST > Sent to [facility] to inform of normal results. Therese Douglas 05/09/2025 02:18:24 PM EST >pt was informed 2.?Type 2 diabetes mellitus without complication, without long-term current use of insulin? Refill Ozempic (0.25 or 0.5 MG/DOSE) Solution Pen-injector, 2 MG/3ML, 0.5 mg, Subcutaneous, once weekly, 30 days, 3 mL, Refills 5.?LAB: P-Comprehensive Metabolic Panel (CMP) (Collection Date & Time - 05/06/2025 09:15 AM)?Normal* Value Reference Range A /G Ratio 1.7 1.1-2.5 - * A lbumin 4.4 3.5-5.3 - g/dL * A lkaline Phosphatase 98 35-121 - IU/L * A LT (SGPT) 21 <5-47 - IU/L * A ST (SGOT) 17 <5-40 - IU/L * B ilirubin, Total 0.4 <0.2-1.2 - mg/dL * B UN 18 8-23 - mg/dL * C alcium 10.1 8.6-10.4 - mg/dL * C hloride 103 97-108 - mmol/L * C O2 24 20-32 - mmol/L * C reatinine 0.88 0.50-1.00 - mg/dL * G lucose 87 65-99 - mg/dL * P otassium 4.7 3.5-5.3 - mmol/L * S odium 137 135-145 - mmol/L * P rotein 7.0 6.0-8.3 - g/dL * e GFR by Creatinine 69 >59 - mL/min/1.73m2 * Reymundo Donato 05/07/2025 11:12:25 AM EST > Sent to to inform of normal results. Therese Douglas 05/09/2025 02:18:24 PM EST >pt was informed ?LAB: P-Microalbumin/Creatinine, Random Urine Sample (Collection Date & Time - 05/06/2025 09:15 AM)?Normal* Value Reference Range A lbumin/Creatinine Ratio, Urine <13.04 0-30 - ug /mg * C reatinine, Urine 23.0 - mg/dL * M icroalbumin, Urine, Random <0.3 - mg/dL * Reymundo Donato 05/07/2025 11:12:25 AM EST > Sent to to inform of normal results. Therese Douglas 05/09/2025 02:18:24 PM EST >pt was informed ?LAB: Glucose (In-House) (Collection Date & Time - 05/06/2025)?119* Value Reference Range b lood glucose 119 74 - 106 mg/dL * Melly Barba 05/06/2025 10: 24:18 AM EST > Provider reviewed results while patient in office. ?LAB: Glycohemoglobin A1c (in house) (Collection Date & Time - 05/06/2025)? 5.9* Value Reference Range g lycohemoglobin 5.9% 5 - 6.5 % * Melly Barba 05/06/2025 10: 27:34 AM EST > Provider reviewed results while patient in office. 3.?Gastroesophageal reflux disease, unspecified whether esophagitis present? Refill Omeprazole Capsule Delayed Release, 20 MG, TAKE 1 CAPSULE BY MOUTH EVERY DAY, 90 days, 90, Refills 1.??4.?Anxiety? Refill buPROPion HCl ER (XL) Tablet Extended Release 24 Hour, 300 MG, 1 tablet in the morning, Orally, Once a day, 90 days, 90, Refills 1.??5.?Other hyperlipidemia? Refill Atorvastatin Calcium Tablet, 40 MG, 1 tab(s), orally, once a day, 90 days, 90, Refills 1. ?LAB: P-Comprehensive Metabolic Panel (CMP) (Collection Date & Time - 05/06/2025 09:15 AM)?Normal* Value Reference Range A /G Ratio 1.7 1.1-2.5 - * A lbumin 4.4 3.5-5.3 - g/dL * A lkaline Phosphatase 98 35-121 - IU/L * A LT (SGPT) 21 <5-47 - IU/L * A ST (SGOT) 17 <5-40 - IU/L * B ilirubin, Total 0.4 <0.2-1.2 - mg/dL * B UN 18 8-23 - mg/dL * C alcium 10.1 8.6-10.4 - mg/dL * C hloride 103 97-108 - mmol/L * C O2 24 20-32 - mmol/L * C reatinine 0.88 0.50-1.00 - mg/dL * G lucose 87 65-99 - mg/dL * P otassium 4.7 3.5-5.3 - mmol/L * S odium 137 135-145 - mmol/L * P rotein 7.0 6.0-8.3 - g/dL * e GFR by Creatinine 69 >59 - mL/min/1.73m2 * Reymundo Donato 05/07/2025 11:12:25 AM EST > Sent to to inform of normal results. Therese Douglas 05/09/2025 02:18:24 PM EST >pt was informed ?LAB: P-Lipid Panel (Collection Date & Time - 05/06/2025 09:15 AM)?Normal* Value Reference Range C holesterol / HDL Ratio 2.39 <3.99 - Ratio * C holesterol 141 <200 - mg/dL * H DL Cholesterol 59 >50 - mg/dL * L DL Cholesterol (Calculation) 69 <100 - mg/d L * L DL/HDL Ratio 1.17 <1.99 - Ratio * N on-HDL Cholesterol 82 <130 - mg/dL * T riglycerides 65 <150 - mg/dL * L ipid Panel Footnote See Below - * Tanmay Reymundo Nguyen 05/07/2025 11:12:25 AM EST > Sent to to inform of normal results. Therese Douglas 05/09/2025 02:18:24 PM EST >pt was informed ?LAB: P-TSH reflex to FT4 (Collection Date & Time - 05/06/2025 09:15 AM)? Normal* Value Reference Range T SH reflex to FT4 1.40 0.43-5.25 - mU/L * Reymundo Donato 05/07/2025 11:12:25 AM EST > Sent to to inform of normal results. Therese Douglas 05/09/2025 02:18:24 PM EST >pt was informed * Immunizations: Fluzone High Dose (65yr and older) : 0.7 mL (Route: Intramuscular) given by Melly Barba on Left Deltoid (Encounter for immunization) * Procedure Codes: G 2211 Complex e/[place], [address] GLUCOSE TEST, 62171 GLYCATED HEMOGLOBIN TEST, Modifiers: QW , 3044F HG A1C LEVEL LT 7.0%, G8950 PREHTN/HTN BP DOC INDCD F/U DOC, G8752 MOST RECENT SYSTOLIC BP < 140MM HG, G8754 MOST RECENT DIASTOLIC BP < 90MM HG, 3075F SYST BP GE 130 - 139MM HG, 3078F DIAST BP < 80 MM HG * Follow Up: 6 Months * Images: Billing Information: * Visit Code: 88296 Office Visit, Est Pt., Level 4. * Procedure Codes: G2211 Complex e/[place]. [address] GLUCOSE TEST. 80890 GLYCATED HEMOGLOBIN TEST. Modifiers: QW 3044F HG A1C LEVEL LT 7.0%. G8950 PREHTN/HTN BP DOC INDCD F/U DOC. G8752 MOST RECENT SYSTOLIC BP < 140MM HG. G8754 MOST RECENT DIASTOLIC BP < 90MM HG. 3075F SYST BP GE 130 - 139MM HG. 3078F DIAST BP < 80 MM HG. * Electronic signature of Erika Donato MD on 06/03/2025 at 01:17 PM EST Sign off status: Pending * Provider: Obed Donato M.D. Date: 07/06/2024 Generated for Mary Jane adames/Char/Perez on: 08/04/2024 01:17 PM EST History and Physical Notes * HPI (History of Present Illness) Category Sub-Category Detail Notes Category Not es Endocrinology Recent Blood Sugars Cardiology Blood Pressure Elevated Pt here for 6 month follow up on Hypertension.Pt states she has no new concerns at this time. Pt would like flu shot Hyperlipidemia Pt is fasting today Examination Category Sub-Category Detail Notes Category Not es Endocrinology HEENT: unremarkable Heart: RSR Lungs: clear to auscultatio n Extremities: no leg edema General Appearance: NAD Skin: normal, no rash
--- NOTE | 2025-06-03 13:17 | MM_ITS ---
PROCEDURE INFORMATION: Exam: MG Bilateral Screening 3D Mammography Exam date and time: 06/03/2025 1:20 PM Age: 74 years old Clinical indication: Screening mammogram TECHNIQUE: Imaging protocol: Bilateral Screening tomosynthesis and 2D mammography including computer-aided detection (CAD) when performed. COMPARISON: 1. MG MM DIG MAMM DX UNILAT LT CAD 04/16/2024 10:18 AM 2. MG MM DIG SCREENING MAMM BI W/CAD 03/17/2024 10:19 AM FINDINGS: MAMMOGRAPHY: Breast composition: There are scattered areas of fibroglandular density. Mass: Stable benign-appearing subcentimeter nodules are present in the bilateral breast. No new or morphologically suspicious nodule has developed to suggest malignancy. Architectural distortion: No new or suspicious architectural distortion. Calcifications: No new or suspicious calcifications are present Asymmetric density: No new or suspicious asymmetric density is present Skin thickening: None. Axillary adenopathy: None. IMPRESSION: No mammographic evidence of malignancy. Recommend annual screening mammography unless otherwise clinically indicated. ASSESSMENT: BI-RADS category 2: Benign.
--- OUTSIDE RECORDS SUMMARY | 2025-06-03 13:17 | XMS_ITS | Patient Health Record ---
Author Organization [facility] Address [address] [facility] [address] [place] [phone] Care Team Providers Care Electrical Tech/Project Manager Name Role Phone KenoSommer ovalleian Primary Care Provider [phone] Allergies No Known Allergies Results Component Value [...] Interpretation:Normal Performing Lab: Notes/Report: Test performed by [facility], [facility] , [address], [place] [address] Jose Walls MD, Diesel Engine I Pipe Fitter CLIA: [id number] Sodium 137 135-145 mmol/L Potassium 4.7 3.5-5.3 [...] Interpretation:Normal Performing Lab: Notes/Report: Test performed by [facility] [address] , [place] [address] Jose Walls MD, Diesel Engine I Pipe Fitter CLIA: [id number] Lipid Panel Footnote See Below *Based on optimal reference values. Please refer to the DOS for additional information regarding diagnostic lipid reference ranges, patient management based on the recently updated lipid guidelines ([place] [employer]/[place] [employer] Task Force on Clinical Practice [...] Interpretation:Normal Performing Lab: Notes/Report: Test performed by [facility] [address] [place] [address] , [facility], [place] [address] Jose Walls MD, Diesel Engine I Pipe Fitter CLIA: [id number] TSH reflex to FT4 1.40 0.43-5.25 mU/L P-Microalbumin/Creatinine, R andom Urine Sample Reviewed date:05/09/2025 02:18:53 PM Interpretation:Normal Performing Lab: Notes/Report: Test performed by [facility] [address] [place] [address] , [address], [place] [address] Jose Walls MD, Diesel Engine I Pipe Fitter CLIA: [id number] Albumin/Creatinine Ratio, Urine <13.04 0-30 ug/m g Microalbumin, Urine, Random <0.3 Creatinine, Urine 23.0 Bone density Reviewed date:02/02/2025 02:41:06 PM Interpretation:Normal Performing Lab: Notes/Report: Normal Bone density normal P-Basic Metabolic Panel (BMP ) Reviewed date:11/04/2024 10:48:04 AM Interpretation:Normal Performing Lab: Notes/Report: Test performed by [facility] [address] [place] [address] , [address], [place] [address] Jose Walls MD, Diesel Engine I Pipe Fitter CLIA: [id number] Sodium 140 135-145 mmol/L Potassium 4.5 3.5-5.3 [...] times a day; Duration: 30 day(s) Active amLODIPine Besylate 5 MG TAKE 1 TABLET BY MOUTH DAILY; Duration: 90 days Active Ozempic (0.25 or 0.5 MG/DOSE) 2 MG/3ML 0.5 mg Subcutaneous once weekly; Duration: 30 days 11/03/2024 Active Atorvastatin Calcium 40 MG 1 tab(s) orally once a day; Duration: 90 days Active CPAP Supplies - as directed as directed 11/03/2024 Active Omeprazole 20 MG TAKE 1 CAPSULE BY MOUTH EVERY DAY; Duration: 90 days Active buPROPion HCl ER (XL) 300 MG 1 tablet in the morning Orally Once a day; Duration: 90 days 05/05/2024 Active Lisinopril 40 MG 1 tablet Orally [...] (65yr and older) IM Intramuscular 04/07/2024 Administered Fluzone High Dose (65yr and older) IM Intramuscular 05/06/2025 Administered PNEUMOVAX 23 VACCINE IM Intramuscular 05/02/2020 Administe red ppd ID Intradermal 04/10/2019 Administered Prevnar (PCV13) Unknown 09/14/2018 Administered Prevnar (PCV20) IM Intramuscular 04/18/2022 Administered Tetanus Tdap-Adacel (over 7yrs) IM Intramuscular 09/14/2018 Administered Problems Problem Type SNOMED Code ICD Code Onset Dates Problem Status W/U Status Risk Notes Problem Essential hypertension (09250630) Essential hypertension (I10) Active confirmed Problem Abnormal mammogram (554455241) Abnormal mammogram (R92.8) Active confirmed Problem Anxiety (60739472) Anxiety (F41.9) Active confi rmed Problem Mixed anxiety and depressive disorder (328373594) Depression with anxiety (F41.8) Active confirmed Problem Body mass index 30.00 to 34.99 (133128180796578) BMI 31.0-31.9,adult (Z68.31) Active confirmed Problem Type II diabetes mellitus without complication (029552343) Type 2 diabetes mellitus without complication, without long-term current use of insulin (E11.9) Active confirmed Problem Impaired fasting glycaemia (584784267) IFG (impaired fasting glucose) (R73.01) Active confirmed Problem Obesity (685256170) Non morbid o besity (E66.9) Active confirmed Problem Hyperlipidemia (77979092) Other hyperlipidemia (E78.49) Active confirmed Problem Obstructive sleep apnea syndrome (49739761) Mild obstructive sleep apnea (G47.33) Active confirmed Problem Gastroesophageal reflux disease (540723353) Gastroesophageal reflux disease, unspecified whether esophagitis present (K21.9) Active confirmed Vital Signs Heart Rate 74 /min 05/06/2025 Blood pressure diastolic 78 mm Hg 05/06/2025 Height 64 in 05/06/2025 Blood pressure systolic 132 mm Hg 05/06/2025 Weight 169.2 lbs 05/06/2025 BMI 29.04 kg/m2 05/06/2025 Encounters Encounter Location Date Provider Diagnosis [facility] [address] [facility] [address] [place], [place] [id number] 06/09/2024 Reymundo Keno Essential hypertensi on I10 and Depression with anxiety F41.8 [facility] [address] [facility] [address] [place], [place] [id number] 11/03/2024 Reymundo Keno Type 2 diabetes savita itus without complication, without long-term current use of insulin E11.9 ; Essential hypertension I10 ; Depression with anxiety F41.8 ; Gastroesophageal reflux disease, unspecified whether esophagitis present K21.9 ; keno terminal operator use of drug Z79.899 and BMI 31.0-31.9,adult Z68.31 [facility] [address] [facility] [address] [place], [place] [id number] 11/10/2024 Reymundo Keno [facility] [address] [facility] [address] [place], [place] [id number] 05/06/2025 Reymundo Keno Essential hypertensi on I10 ; Type 2 diabetes mellitus without complication, without long-term current use of insulin E11.9 ; Gastroesophageal reflux disease, unspecified whether esophagitis present K21.9 ; Anxiety F41.9 ; Other hyperlipidemia E78.49 and Encounter for immunization Z23 [facility] [address] [facility] [address] [place], [place] [id number] 11/03/2024 Reymundo Keno [facility] [address] [facility] [address] [place], [place] [id number] 12/08/2024 Reymundo Keno Type 2 diabetes savita itus without complication, without long-term current use of insulin E11.9 [facility] [address] [facility] [address] [place] [id number] 12/13/2024 Reymundosusie Donato Type 2 diabetes savita itus without complication, without long-term current use of insulin E11.9 [place] [address] [facility] [address] [place] [id number] 12/23/2024 Reymundo Keno Screening for osteop orosis Z13.820 ; Menopause Z78.0 and Colon cancer screening Z12.11 [place] [address] [facility] [address] [place] [id number] 01/12/2025 Reymundosusie Donato Type 2 diabetes savita itus without complication, without long-term current use of insulin E11.9 [facility] [address] [place], [place] [id number] 02/10/2025 Reymundosusie Donato Type 2 diabetes savita itus without complication, without long-term current use of insulin E11.9 [facility] [address] [place] [id number] 03/14/2025 Reymundosusie Donato Type 2 diabetes savita itus without [...] 12/23/2024 Screening for osteoporosis (ICD-10 - Z13.820) 12/23/2024 Menopause (ICD-10 - Z78.0) 01/12/2025 Type 2 diabetes mellitus without complication, without long-term current use of insulin (ICD-10 - E11.9) 02/10/2025 Type 2 diabetes mellitus without complication, without long-term current use of insulin (ICD-10 - E11.9) 03/14/2025 Type 2 diabetes mellitus without complication, without long-term current use of insulin (ICD-10 - E11.9) 05/06/2025 Essential hypertension (ICD-10 - I10) 11/03/2024 Type 2 diabetes mellitus without complication, without long-term current use of insulin (ICD-10 - E11.9) 05/06/2025 Type 2 diabetes mellitus without complication, without long-term current use of insulin (ICD-10 - E11.9) 05/06/2025 Gastroesophageal reflux disease, unspecified whether esophagitis present (ICD-10 - K21.9) 12/23/2024 Colon cancer screening (ICD-10 - Z12.11) 11/03/2024 Depression with anxiety (ICD-10 - F41.8) 05/06/2025 Anxiety (ICD-10 - F41.9) 11/03/2024 Gastroesophageal reflux disease, unspecified whether esophagitis present (ICD-10 - K21.9) 05/06/2025 Other hyperlipidemia (ICD-10 - E78.49) 11/03/2024 keno terminal operator use of drug (ICD-10 - Z79.899) 11/03/2024 BMI 31.0-31.9,adult (ICD-10 - Z68.31) 05/06/2025 Encounter for immunization (ICD-10 - Z23) Plan Of Treatment Pending Test Test Name Order Date Mammogram 05/11/2025 Cologuard 12/23/2024 Cologuard 04/24/2023 Next Appt Details Provider Name:Reymundo Hair ry, 11/03/2025 09:00:00 AM, [address] [facility], [address], [place], [place], [phone], Insurance Providers Payer Name Payer Address Payer Phone Subscriber Number Group Number Insured Name Patient Relationship to Insured Coverage Start Date Coverage End Date [employer] [address] [address] [place], [place] [id number] YOKO HYDE Self - patient is the insured Medical (General) History Medical History History ICD Code Type 2 Diabetes Hypertension Hyperlipidemia Depression Cologuard, Negative 01/2020 sleep apnea Surgical History Surgery Date(Month/Year) Total Hysterectomy 2006 Colonoscopy, Dr. Allran 2009 Hospitalization History Reason Date(Month/Year)
== END 2025-06-03 23:59 | disposition home or self-care (01) ==
LOC: RAD 13:16
PROVIDERS: PCP Family Medicine; Visit Provider Family Medicine
DX: Z12.31 Encounter for screening mammogram for malignant neoplasm of breast (principal); R92.323 Mammographic fibroglandular density, bilateral breasts; N63.20 Unspecified lump in the left breast, unspecified quadrant; N63.10 Unspecified lump in the right breast, unspecified quadrant
CPT/HCPCS: 77063; 77067